=== PATIENT | male | born 1975 | race Caucasian/White ===

== ENCOUNTER 2020-05-17 11:23 | Inpatient (IN) | payer OTHER, SELFPAY ==
[2020-05-17 14:00] VITALS: BP 130/79
[2020-05-17] MEDS ORDERED: SYMB16INH INH (15:10)
[2020-05-17] MEDS ORDERED: ATOR40TA75 PO (15:10)
[2020-05-17] MEDS ORDERED: AMLO25TA PO (15:10)
[2020-05-17] MEDS ORDERED: SENN-23 PO (15:10)
[2020-05-17] MEDS ORDERED: ASPI81CH33 PO (15:10)
[2020-05-17] MEDS ORDERED: FLOM0.4C39 PO (15:10)
[2020-05-17] MEDS ORDERED: VENTAER INH (15:10)
[2020-05-17] MEDS ORDERED: BISA10SU27 PR (15:10)
[2020-05-17] MEDS ORDERED: FAMO20TA PO (15:10)
[2020-05-17] MEDS ORDERED: [UNRECOGNIZED DRUG - CODE] XX (15:10)
[2020-05-17] MEDS ORDERED: patient comment (15:14)
[2020-05-17] MEDS: REMEDY PHYTOPLEX Z-GUARD PASTE 113GM TUBE (FROM STOREROOM PRODUCT) TOP SCH ×2 (16:00→20:14)
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
[2020-05-17] MEDS: IPRATROPIUM 0.5MG/ALBUTEROL 2.5MG INH SOL UD 3ML (DUONEB) NEB SCH (19:31)
[2020-05-17] MEDS: SYMBICORT 160/4.5MCG INHALER 6GM INH SCH (19:39)
[2020-05-17 20:00] VITALS: BP 131/71
[2020-05-17] MEDS: SENNA 8.6 MG TAB (SENOKOT) PO SCH (20:08)
[2020-05-17] MEDS: DOCUSATE SODIUM 100 MG CAP PO SCH (20:08)
[2020-05-17] MEDS: FAMOTIDINE 20 MG TAB PO SCH (20:08)
[2020-05-17] MEDS: ATORVASTATIN 20 MG TAB PO SCH (20:08)
[2020-05-17] MEDS: HEPARIN SOD (PORCINE) 5000UNITS/ML 1ML VIAL/SYRINGE SC SCH (20:08)
[2020-05-17] MEDS: ACETAMINOPHEN TAB 650MG DOSE (2X325MG) PO PRN (20:08)
[2020-05-17] MEDS: traZODone 25MG PER 1/2 TABLET PO PRN (20:08)
[2020-05-18] MEDS ORDERED: SODIUM CHLORIDE 0.9% INJ 10 ML SYR IV PRN (01:45)
[2020-05-18 06:00] VITALS: BP 116/79
[2020-05-18 06:57] LABS: BASO % 0.4 % (0.0-1.0); EOS # 0.2 10^3/uL (0.0-0.5); EOS % 3.6 % (0.0-3.0); HEMATOCRIT 41.2 % (42.0-52.0); HEMOGLOBIN 14.1 g/dl (13.5-17.5); LYMPH # 1.4 10^3/uL (1.5-5.0); LYMPH % 25.4 % (24.0-44.0); MEAN CORPUSCULAR HEMOGLOBIN 30.5 pg (27.0-33.0); MEAN CORPUSCULAR HGB CONC 34.2 g/dl (32.0-36.5); MEAN CORPUSCULAR VOLUME 89.2 fl (80.0-96.0); MONO # 0.5 10^3/uL (0.0-0.8); MONO % 9.3 % (0.0-5.0); NEUTROPHILS # 3.4 10^3/uL (1.5-8.5); NEUTROPHILS % 60.9 % (36.0-66.0); PLATELET COUNT, AUTOMATED 340 10^3/uL (150-450); RED BLOOD COUNT 4.62 10^6/uL (4.30-6.10); WHITE BLOOD COUNT 5.6 10^3/uL (4.0-10.0)
[2020-05-18 07:20] LABS: ALBUMIN 3.3 GM/DL (3.2-5.2); ALT/SGPT 191 U/L (12-78); BILIRUBIN,TOTAL 0.3 MG/DL (0.2-1.0); BLOOD UREA NITROGEN 13 MG/DL (7-18); CALCIUM LEVEL 8.9 MG/DL (8.5-10.1); CARBON DIOXIDE LEVEL 24 MEQ/L (21-32); CHLORIDE LEVEL 108 MEQ/L (98-107); CREATININE FOR GFR 1.12 MG/DL (0.70-1.30); GLOMERULAR FILTRATION RATE > 60.0 (>60); GLUCOSE, FASTING 128 MG/DL (70-100); POTASSIUM SERUM 4.1 MEQ/L (3.5-5.1); SODIUM LEVEL 141 MEQ/L (136-145); TOTAL PROTEIN 6.7 GM/DL (6.4-8.2)
[2020-05-18] MEDS: SYMBICORT 160/4.5MCG INHALER 6GM INH SCH ×2 (07:43→19:46)
[2020-05-18] MEDS: IPRATROPIUM 0.5MG/ALBUTEROL 2.5MG INH SOL UD 3ML (DUONEB) NEB SCH ×3 (07:43→19:46)
[2020-05-18] MEDS: FLUoxetine 20 MG CAP PO SCH (08:14)
[2020-05-18] MEDS: ASPIRIN 81 MG ENTERIC TAB PO SCH (08:14)
[2020-05-18] MEDS: TAMSULOSIN 0.4 MG CAP PO SCH (08:14)
[2020-05-18] MEDS: DOCUSATE SODIUM 100 MG CAP PO SCH ×2 (08:15→20:50)
[2020-05-18] MEDS: FAMOTIDINE 20 MG TAB PO SCH ×2 (08:15→20:50)
[2020-05-18] MEDS: HEPARIN SOD (PORCINE) 5000UNITS/ML 1ML VIAL/SYRINGE SC SCH ×2 (08:15→20:49)
[2020-05-18] MEDS: REMEDY PHYTOPLEX Z-GUARD PASTE 113GM TUBE (FROM STOREROOM PRODUCT) TOP SCH ×3 (08:16→20:50)
[2020-05-18] MEDS: ACETAMINOPHEN TAB 650MG DOSE (2X325MG) PO PRN ×2 (13:01→20:49)
[2020-05-18 14:00] VITALS: BP 121/75
[2020-05-18] MEDS ORDERED: SODIUM CHLORIDE 0.9% INJ 10 ML SYR IV SCH (17:00)
[2020-05-18 20:00] VITALS: BP 117/79
[2020-05-18] MEDS: ATORVASTATIN 20 MG TAB PO SCH (20:49)
[2020-05-18] MEDS: SENNA 8.6 MG TAB (SENOKOT) PO SCH (20:50)
[2020-05-18] MEDS: traZODone 25MG PER 1/2 TABLET PO PRN (20:50)
[2020-05-19 06:00] VITALS: BP 109/60
[2020-05-19] MEDS: IPRATROPIUM 0.5MG/ALBUTEROL 2.5MG INH SOL UD 3ML (DUONEB) NEB SCH ×4 (08:00→18:15)
[2020-05-19] MEDS: SYMBICORT 160/4.5MCG INHALER 6GM INH SCH ×2 (08:03→18:15)
[2020-05-19] MEDS: ACETAMINOPHEN TAB 650MG DOSE (2X325MG) PO PRN ×3 (08:57→20:53)
[2020-05-19] MEDS: HEPARIN SOD (PORCINE) 5000UNITS/ML 1ML VIAL/SYRINGE SC SCH ×2 (08:57→20:53)
[2020-05-19] MEDS: FLUoxetine 20 MG CAP PO SCH (08:57)
[2020-05-19] MEDS: DOCUSATE SODIUM 100 MG CAP PO SCH ×2 (08:57→20:53)
[2020-05-19] MEDS: TAMSULOSIN 0.4 MG CAP PO SCH (08:57)
[2020-05-19] MEDS: FAMOTIDINE 20 MG TAB PO SCH ×2 (08:57→20:53)
[2020-05-19] MEDS: ASPIRIN 81 MG ENTERIC TAB PO SCH (08:57)
[2020-05-19] MEDS: REMEDY PHYTOPLEX Z-GUARD PASTE 113GM TUBE (FROM STOREROOM PRODUCT) TOP SCH ×3 (08:57→20:54)
[2020-05-19 14:00] VITALS: BP 90/51
[2020-05-19 19:50] VITALS: BP 129/71
[2020-05-19] MEDS: SENNA 8.6 MG TAB (SENOKOT) PO SCH (20:53)
[2020-05-19] MEDS: ATORVASTATIN 20 MG TAB PO SCH (20:53)
[2020-05-19] MEDS: traZODone 25MG PER 1/2 TABLET PO PRN (20:53)
[2020-05-20 05:22] VITALS: BP 129/69
[2020-05-20] MEDS: SYMBICORT 160/4.5MCG INHALER 6GM INH SCH ×2 (07:36→20:24)
[2020-05-20] MEDS: IPRATROPIUM 0.5MG/ALBUTEROL 2.5MG INH SOL UD 3ML (DUONEB) NEB SCH ×3 (07:36→20:00)
[2020-05-20] MEDS: FAMOTIDINE 20 MG TAB PO SCH ×2 (08:08→21:33)
[2020-05-20] MEDS: DOCUSATE SODIUM 100 MG CAP PO SCH ×2 (08:08→21:32)
[2020-05-20] MEDS: FLUoxetine 20 MG CAP PO SCH (08:08)
[2020-05-20] MEDS: ASPIRIN 81 MG ENTERIC TAB PO SCH (08:09)
[2020-05-20] MEDS: REMEDY PHYTOPLEX Z-GUARD PASTE 113GM TUBE (FROM STOREROOM PRODUCT) TOP SCH ×3 (08:10→21:00)
[2020-05-20] MEDS: TAMSULOSIN 0.4 MG CAP PO SCH (08:10)
[2020-05-20] MEDS: HEPARIN SOD (PORCINE) 5000UNITS/ML 1ML VIAL/SYRINGE SC SCH ×2 (08:10→21:32)
[2020-05-20 08:11] VITALS: BP 109/66
[2020-05-20] MEDS: ACETAMINOPHEN TAB 650MG DOSE (2X325MG) PO PRN (11:17)
[2020-05-20 11:57] LABS: BASO % 0.5 % (0.0-1.0); EOS # 0.2 10^3/uL (0.0-0.5); EOS % 2.8 % (0.0-3.0); HEMATOCRIT 43.6 % (42.0-52.0); HEMOGLOBIN 14.6 g/dl (13.5-17.5); LYMPH # 1.2 10^3/uL (1.5-5.0); LYMPH % 16.4 % (24.0-44.0); MEAN CORPUSCULAR HEMOGLOBIN 30.4 pg (27.0-33.0); MEAN CORPUSCULAR HGB CONC 33.5 g/dl (32.0-36.5); MEAN CORPUSCULAR VOLUME 90.8 fl (80.0-96.0); MONO # 0.5 10^3/uL (0.0-0.8); MONO % 7.2 % (0.0-5.0); NEUTROPHILS # 5.5 10^3/uL (1.5-8.5); NEUTROPHILS % 72.7 % (36.0-66.0); PLATELET COUNT, AUTOMATED 357 10^3/uL (150-450); WHITE BLOOD COUNT 7.6 10^3/uL (4.0-10.0)
[2020-05-20 12:12] LABS: BLOOD UREA NITROGEN 12 MG/DL (7-18); CALCIUM LEVEL 9.3 MG/DL (8.5-10.1); CARBON DIOXIDE LEVEL 27 MEQ/L (21-32); CHLORIDE LEVEL 106 MEQ/L (98-107); CREATININE FOR GFR 1.18 MG/DL (0.70-1.30); GLOMERULAR FILTRATION RATE > 60.0 (>60); GLUCOSE, FASTING 147 MG/DL (70-100); SODIUM LEVEL 141 MEQ/L (136-145)
--- NOTE | 2020-05-20 12:14 | IPNPDOC ---
PM&R Progress Note DATE OF SERVICE: May 20, 2020 Wage And Salary Administrator Progress Note Subjective: PAtient seen in therapy getting NMES to his RLE and was unable to state how he was feeling. He was unable to give a "thumbs up" sign on command, but did att empt to do it. He was able to follow some commands and participate in therapy. REVIEW OF SYSTEMS: The following is a completed review of systems and has been reviewed. Review of systems otherwise unremarkable. *Difficult to assess due to global aphasia, but patient does not appear to be in pain GENITOURINARY: +neely MUSCULOSKELETAL: right sided weakness NEUROLOGICAL:+right sided paresis with aphasia SKIN: no rash PSYCHIATRIC: +aphasia All other review of systems found to be negative. PAST MEDICAL HISTORY: as per HPI PAST SURGICAL HISTORY: Colostomy s/p removal PHYSICAL EXAMINATION: VITAL SIGNS: Please see below. GENERAL: Pleasant and cooperative. No acute distress. HEENT: PERRL. Extraocular movements intact. Clear conjunctiva, righ facial droop CARDIOVASCULAR: Regular rate and rhythm. No murmurs, rubs, or gallops LUNGS: Clear to auscultation bilaterally. No wheezes. No rhonchi ABDOMEN: Soft, nontender, nondistended. Positive bowel sounds. Normal active bowel sounds. old scars NEUROLOGICAL: +global aphasia, Cranial nerves II through XII grossly intact. Sensation grossly intact to light touch throughout although difficult yo assess due to aphasia 3+patellar reflex, +RLE clonus 1/4 tone RUE EXTREMITIES: 5\\5 strength left upper extremities. 0\\5 strength right lower and upper extremity. 5/5 strength in left lower extremity. SKIN: intact ASSESSMENT:45-year-old M with past medical history of Asthma who presents status post large left MCA infarct PLAN: 1. Rehab- PT/OT advance mobility and ADLs, stretch/strengthen/maintain ROM all 4 limbs, estim ok to trial to right side 2. 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 Cardiac- HTN c/u amlodipine -medicine consulted to assist in management 4. Neuro- large left MCA infarct with dense right sided hemiparesis and global aphasia, c/u ASA and statin -c/u prozac for motor recovery -monitor for tone 5. Resp- hx of asthma- duonebs, incentive spirometry 6. GI ppx- pepcid 7. DVT ppx- heparin and teds 8. Pain- tylenol prn 9. - c/u neely and flofuentes, will consider TOV this week, however concern patient will not be able to communicate his need to urinate effectively 10. Dispo- tbd Allergies Coded Allergies: SEAFOOD (Unverified Allergy, Unknown, SHELLFISH, 05/17/20) Vital Signs Vital Signs Date Time Temp Pulse Resp B/P (MAP) Pulse Ox O2 Delivery O2 Flow Rate FiO2 05/20/20 08:11 71 109/66 (80) 05/20/20 05:22 98.1 18 97 Room Air Laboratory Data CBC/BMP Laboratory Tests 05/20/20 11:35 Labs 24H Laboratory Tests 2 05/20/20 11:35: Immature Granulocyte % (Auto) 0.4, Neutrophils (%) (Auto) 72.7H, Lymphocytes (%) (Auto) 16.4L, Monocytes (%) (Auto) 7.2H, Eosinophils (%) (Auto) 2.8, Basophils (%) (Auto) 0.5, Neutrophils # (Auto) 5.5, Lymphocytes # (Auto) 1.2L, Monocytes # (Auto) 0.5, Eosinophils # (Auto) 0.2, Basophils # (Auto) 0.0, Nucleated Red Blood Cells % (auto) 0.0 Current Medications Current Medications Current Medications Medications (Trade) Dose Ordered Sig/Live Route PRN Reason Start Time Stop Time Status Last Admin Dose Admin Acetaminophen (Tylenol Tab) 650 mg Q4HP PRN PO fever/MILD PAIN (PS 1-4) 05/17/20 13:15 05/20/20 11:17 Albuterol/ Ipratropium (Duoneb (Ipr 0.5mg/Alb 2.5mg)) 3 ml RTID NEB 05/17/20 20:00 05/19/20 15:57 Amlodipine Besylate (Norvasc) 2.5 mg DAILY PO 05/18/20 09:00 05/18/20 08:15 Aspirin (Ecotrin) 81 mg DAILY PO 05/18/20 09:00 05/20/20 08:09 Atorvastatin Calcium (Lipitor) 80 mg QHS PO 05/17/20 21:00 05/19/20 20:53 Budesonide/ Formoterol Fumarate (Symbicort 160/ 4.5mcg) 2 puff RBID INH 05/17/20 20:00 05/20/20 07:36 Docusate Sodium (Colace) 100 mg BID PO 05/17/20 21:00 05/20/20 08:08 Famotidine (Pepcid) 20 mg BID PO 05/17/20 21:00 05/20/20 08:08 Fluoxetine HCl (PROzac) 20 mg DAILY PO 05/18/20 09:00 05/20/20 08:08 Heparin Sodium (Heparin (Flush)) 200 units ASDIRECTED PRN IV SEE LABEL COMMENTS 05/18/20 01:45 Cancel Heparin Sodium (Heparin (Flush)) 200 units PICC IV 05/18/20 17:00 Cancel Heparin Sodium (Porcine) (Heparin) 5,000 units Q12H SC 05/17/20 21:00 05/20/20 08:10 Home Med (Med Rec Complete!) ASDIRECTED XX 05/17/20 16:15 05/17/20 16:09 DC Senna (Senokot) 1 tab QHS PO 05/17/20 21:00 05/19/20 20:53 Sodium Chloride (Saline Lock Flush) 10 ml ASDIRECTED PRN IV SEE LABEL COMMENTS 05/18/20 01:45 Cancel Sodium Chloride (Saline Lock Flush) 10 ml PICC IV 05/18/20 17:00 Cancel Tamsulosin HCl (Flomax) 0.4 mg DAILY PO 05/18/20 09:00 05/20/20 08:10 Trazodone HCl (Desyrel) 25 mg QHSP PRN PO INSOMNIA 05/17/20 13:15 05/19/20 20:53 OMAR CABELLO MD May 20, 2020 12:14
[2020-05-20 14:00] VITALS: BP 116/66
[2020-05-20 14:40] VITALS: BP 121/61
[2020-05-20 20:20] VITALS: BP 129/74
[2020-05-20] MEDS: ATORVASTATIN 20 MG TAB PO SCH (21:33)
[2020-05-20] MEDS: SENNA 8.6 MG TAB (SENOKOT) PO SCH (21:33)
[2020-05-21 05:52] VITALS: BP 116/65
[2020-05-21] MEDS: IPRATROPIUM 0.5MG/ALBUTEROL 2.5MG INH SOL UD 3ML (DUONEB) NEB SCH ×3 (07:15→19:33)
[2020-05-21] MEDS: SYMBICORT 160/4.5MCG INHALER 6GM INH SCH ×2 (07:15→19:33)
[2020-05-21] MEDS: REMEDY PHYTOPLEX Z-GUARD PASTE 113GM TUBE (FROM STOREROOM PRODUCT) TOP SCH ×3 (09:00→20:37)
[2020-05-21] MEDS: FLUoxetine 20 MG CAP PO SCH (09:02)
[2020-05-21] MEDS: ASPIRIN 81 MG ENTERIC TAB PO SCH (09:02)
[2020-05-21] MEDS: DOCUSATE SODIUM 100 MG CAP PO SCH ×2 (09:02→20:37)
[2020-05-21] MEDS: TAMSULOSIN 0.4 MG CAP PO SCH (09:02)
[2020-05-21] MEDS: HEPARIN SOD (PORCINE) 5000UNITS/ML 1ML VIAL/SYRINGE SC SCH ×2 (09:02→20:36)
[2020-05-21] MEDS: FAMOTIDINE 20 MG TAB PO SCH ×2 (09:02→20:36)
[2020-05-21 14:00] VITALS: BP 136/66
[2020-05-21 20:00] VITALS: BP 122/64
[2020-05-21] MEDS: SENNA 8.6 MG TAB (SENOKOT) PO SCH (20:36)
[2020-05-21] MEDS: ATORVASTATIN 20 MG TAB PO SCH (20:37)
[2020-05-22] MEDS: traZODone 25MG PER 1/2 TABLET PO PRN (01:14)
[2020-05-22] MEDS: ACETAMINOPHEN TAB 650MG DOSE (2X325MG) PO PRN (01:14)
[2020-05-22] MEDS ORDERED: SLF 3 ML SYR IV PRN (03:30)
[2020-05-22 05:26] VITALS: BP 137/63
[2020-05-22] MEDS ORDERED: SLF 3 ML SYR IV SCH (06:00)
[2020-05-22 07:24] LABS: BASO % 0.5 % (0.0-1.0); EOS # 0.2 10^3/uL (0.0-0.5); EOS % 5.4 % (0.0-3.0); HEMATOCRIT 39.5 % (42.0-52.0); HEMOGLOBIN 13.1 g/dl (13.5-17.5); LYMPH # 1.3 10^3/uL (1.5-5.0); LYMPH % 28.2 % (24.0-44.0); MEAN CORPUSCULAR HEMOGLOBIN 30.5 pg (27.0-33.0); MEAN CORPUSCULAR HGB CONC 33.2 g/dl (32.0-36.5); MEAN CORPUSCULAR VOLUME 91.9 fl (80.0-96.0); MONO # 0.6 10^3/uL (0.0-0.8); MONO % 12.4 % (0.0-5.0); NEUTROPHILS # 2.4 10^3/uL (1.5-8.5); PLATELET COUNT, AUTOMATED 325 10^3/uL (150-450); WHITE BLOOD COUNT 4.4 10^3/uL (4.0-10.0)
[2020-05-22 07:50] LABS: BLOOD UREA NITROGEN 7 MG/DL (7-18); CALCIUM LEVEL 8.9 MG/DL (8.5-10.1); CARBON DIOXIDE LEVEL 24 MEQ/L (21-32); CHLORIDE LEVEL 108 MEQ/L (98-107); GLOMERULAR FILTRATION RATE > 60.0 (>60); GLUCOSE, FASTING 119 MG/DL (70-100); POTASSIUM SERUM 4.4 MEQ/L (3.5-5.1); SODIUM LEVEL 140 MEQ/L (136-145)
[2020-05-22] MEDS: SYMBICORT 160/4.5MCG INHALER 6GM INH SCH ×2 (08:00→19:27)
[2020-05-22] MEDS: IPRATROPIUM 0.5MG/ALBUTEROL 2.5MG INH SOL UD 3ML (DUONEB) NEB SCH ×3 (08:00→19:27)
[2020-05-22] MEDS: HEPARIN SOD (PORCINE) 5000UNITS/ML 1ML VIAL/SYRINGE SC SCH ×2 (08:12→20:51)
[2020-05-22] MEDS: FAMOTIDINE 20 MG TAB PO SCH ×2 (08:12→20:51)
[2020-05-22] MEDS: FLUoxetine 20 MG CAP PO SCH (08:13)
[2020-05-22] MEDS: REMEDY PHYTOPLEX Z-GUARD PASTE 113GM TUBE (FROM STOREROOM PRODUCT) TOP SCH ×3 (08:13→20:51)
[2020-05-22] MEDS: DOCUSATE SODIUM 100 MG CAP PO SCH ×2 (08:13→20:51)
[2020-05-22] MEDS: ASPIRIN 81 MG ENTERIC TAB PO SCH (08:13)
[2020-05-22] MEDS: TAMSULOSIN 0.4 MG CAP PO SCH (08:13)
[2020-05-22 09:56] VITALS: BP 118/72
[2020-05-22 10:37] LABS: PROLACTIN 6.2 NG/ML (2.1-17.7)
--- NOTE | 2020-05-22 11:25 | REP ---
Clinical: Seizure-like activity . Comparison: None . Findings: Low density changes involving the left hemisphere with prominent overlying cortical gyri in a primarily left middle cerebral artery distribution is concerning for an acute/subacute infarction. No significant vasogenic edema or mass/mass effect currently identified. The ventricles and specifically the lateral ventricles as well as the sulci are symmetric and patent. No obvious focal intracranial hemorrhage noted. Remainder examination appears normal. Impression: Findings described above most concerning for left MCA artery infarction and correlation is recommended. Consider MRI for further investigation. Electronically Signed by Daniel Wilcox MD 05/22/2020 11:17 A
--- NOTE | 2020-05-22 12:12 | IPNPDOC ---
PM&R Progress Note DATE OF SERVICE: May 21, 2020 Equipment Maintenance Technician Progress Note Subjective: Patient seen in his room watching television, appearing alert and comfortable, He made attempts to sing along with the "ABC's" but was was only able to repeat the sound "no" in a monotone voice. REVIEW OF SYSTEMS: The following is a completed review of systems and has been reviewed. Review of systems otherwise unremarkable. *Difficult to assess due to global aphasia, but patient does not appear to be in pain GENITOURINARY: +neely MUSCULOSKELETAL: right sided weakness NEUROLOGICAL:+right sided paresis with aphasia SKIN: no rash PSYCHIATRIC: +aphasia All other review of systems found to be negative. PHYSICAL EXAMINATION: VITAL SIGNS: Please see below. GENERAL: Pleasant and cooperative. No acute distress. HEENT: PERRL. Extraocular movements intact. Clear conjunctiva, righ facial droop CARDIOVASCULAR: Regular rate and rhythm. No murmurs, rubs, or gallops LUNGS: Clear to auscultation bilaterally. No wheezes. No rhonchi ABDOMEN: Soft, nontender, nondistended. Positive bowel sounds. Normal active bowel sounds. old scars NEUROLOGICAL: +global aphasia, Cranial nerves II through XII grossly intact. Sensation grossly intact to light touch throughout although difficult to assess due to aphasia 3+patellar reflex, +RLE clonus 1/4 tone RUE EXTREMITIES: 5\\5 strength left upper extremities. 0\\5 strength right lower and upper extremity. 5/5 strength in left lower extremity. SKIN: intact ASSESSMENT:45-year-old M with past medical history of Asthma who presents status post large left MCA infarct PLAN: 1. 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 Cardiac- HTN c/u amlodipine -medicine consulted to assist in management 4. Neuro- large left MCA infarct with dense right sided hemiparesis and global aphasia, c/u ASA and statin -c/u prozac for motor recovery -monitor for tone, c/u resting hand splint and daily stretching 5. Resp- hx of asthma- duonebs, incentive spirometry 6. GI ppx- pepcid 7. DVT ppx- heparin and teds 8. Pain- tylenol prn 9. - c/u neely and erasmo, will consider TOV this week, however concern patient will not be able to communicate his need to urinate effectively 10. Dispo- tbd Allergies Coded Allergies: SEAFOOD (Unverified Allergy, Unknown, SHELLFISH, 05/17/20) Vital Signs Vital Signs Date Time Temp Pulse Resp B/P (MAP) Pulse Ox O2 Delivery O2 Flow Rate FiO2 05/22/20 09:56 118/72 (87) 05/22/20 08:13 63 05/22/20 05:26 98.3 18 98 Room Air Laboratory Data CBC/BMP Laboratory Tests 05/22/20 06:51 Labs 24H Laboratory Tests 2 05/22/20 06:51: Immature Granulocyte % (Auto) 0.5, Neutrophils (%) (Auto) 53.0, Lymphocytes (%) (Auto) 28.2, Monocytes (%) (Auto) 12.4H, Eosinophils (%) (Auto) 5.4H, Basophils (%) (Auto) 0.5, Neutrophils # (Auto) 2.4, Lymphocytes # (Auto) 1.3L, Monocytes # (Auto) 0.6, Eosinophils # (Auto) 0.2, Basophils # (Auto) 0.0, Nucleated Red Blood Cells % (auto) 0.0, Anion Gap 8, Glomerular Filtration Rate > 60.0, Calcium Level 8.9, Prolactin 6.2 Current Medications Current Medications Current Medications Medications (Trade) Dose Ordered Sig/Live Route PRN Reason Start Time Stop Time Status Last Admin Dose Admin Acetaminophen (Tylenol Tab) 650 mg Q4HP PRN PO fever/MILD PAIN (PS 1-4) 05/17/20 13:15 05/22/20 01:14 Albuterol/ Ipratropium (Duoneb (Ipr 0.5mg/Alb 2.5mg)) 3 ml RTID NEB 05/17/20 20:00 05/20/20 13:10 Amlodipine Besylate (Norvasc) 2.5 mg DAILY PO 05/18/20 09:00 05/22/20 08:13 Aspirin (Ecotrin) 81 mg DAILY PO 05/18/20 09:00 05/22/20 08:13 Atorvastatin Calcium (Lipitor) 80 mg QHS PO 05/17/20 21:00 05/21/20 20:37 Budesonide/ Formoterol Fumarate (Symbicort 160/ 4.5mcg) 2 puff RBID INH 05/17/20 20:00 05/21/20 19:33 Docusate Sodium (Colace) 100 mg BID PO 05/17/20 21:00 05/22/20 08:13 Famotidine (Pepcid) 20 mg BID PO 05/17/20 21:00 05/22/20 08:12 Fluoxetine HCl (PROzac) 20 mg DAILY PO 05/18/20 09:00 05/22/20 08:13 Heparin Sodium (Heparin (Flush)) 200 units ASDIRECTED PRN IV SEE LABEL COMMENTS 05/18/20 01:45 Cancel Heparin Sodium (Heparin (Flush)) 200 units PICC IV 05/18/20 17:00 Cancel Heparin Sodium (Porcine) (Heparin) 5,000 units Q12H SC 05/17/20 21:00 05/22/20 08:12 Home Med (Med Rec Complete!) ASDIRECTED XX 05/17/20 16:15 05/17/20 16:09 DC Senna (Senokot) 1 tab QHS PO 05/17/20 21:00 05/20/20 21:33 Sodium Chloride (Saline Lock Flush) 2 ml ASDIRECTED PRN IV SEE LABEL COMMENTS 05/22/20 03:30 05/22/20 05:51 DC Sodium Chloride (Saline Lock Flush) 2 ml SLF IV 05/22/20 06:00 05/22/20 05:51 DC Sodium Chloride (Saline Lock Flush) 10 ml ASDIRECTED PRN IV SEE LABEL COMMENTS 05/18/20 01:45 Cancel Sodium Chloride (Saline Lock Flush) 10 ml PICC IV 05/18/20 17:00 Cancel Tamsulosin HCl (Flomax) 0.4 mg DAILY PO 05/18/20 09:00 05/22/20 08:13 Trazodone HCl (Desyrel) 25 mg QHSP PRN PO INSOMNIA 05/17/20 13:15 05/22/20 01:14 OMAR CABELLO MD May 22, 2020 12:12
--- NOTE | 2020-05-22 12:16 | IPNPDOC ---
PM&R Progress Note DATE OF SERVICE: May 22, 2020 Sales Representative Printing Paper Progress Note Subjective: Patient seen in his on the stretcher going down to CT and again after imaging study. Both times he appeared comfortable, no shaking or drooling, able to res pond to verbal cues with somewhat appropriate gestures, but unable to verbalize. REVIEW OF SYSTEMS: The following is a completed review of systems and has been reviewed. Review of systems otherwise unremarkable. *Difficult to assess due to global aphasia, but patient does not appear to be in pain GENITOURINARY: +neely MUSCULOSKELETAL: right sided weakness NEUROLOGICAL:+right sided paresis with aphasia SKIN: no rash PSYCHIATRIC: +aphasia All other review of systems found to be negative. PHYSICAL EXAMINATION: VITAL SIGNS: Please see below. GENERAL: Pleasant and cooperative. No acute distress. HEENT: PERRL. Extraocular movements intact. Clear conjunctiva, righ facial droop CARDIOVASCULAR: Regular rate and rhythm. No murmurs, rubs, or gallops LUNGS: Clear to auscultation bilaterally. No wheezes. No rhonchi ABDOMEN: Soft, nontender, nondistended. Positive bowel sounds. Normal active bowel sounds. old scars NEUROLOGICAL: +global aphasia, Cranial nerves II through XII grossly intact. Sensation grossly intact to light touch throughout although difficult to assess due to aphasia 3+patellar reflex, +RLE clonus 1/4 tone RUE EXTREMITIES: 5\5 strength left upper extremities. 0\5 strength right lower and upper extremity. 5/5 strength in left lower extremity. SKIN: intact ASSESSMENT:45-year-old M with past medical history of Asthma who presents status post large left MCA infarct PLAN: 1. 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 Cardiac- HTN c/u amlodipine -medicine consulted to assist in management 4. Neuro- large left MCA infarct with dense right sided hemiparesis and global aphasia, c/u ASA and statin -c/u prozac for motor recovery -monitor for tone, c/u resting hand splint and daily stretching -patient with seizure-like activity in OT today, vitals stable and appears back to baseline- CTH negative for new bleed, prolactin not elevated, EEG ordered and case discussed with Dr. Cardenas who will consult on the patient and give further recs 5. Resp- hx of asthma- duonebs, incentive spirometry 6. GI ppx- pepcid 7. DVT ppx- heparin and teds 8. Pain- tylenol prn 9. - c/u neely and flomax, will consider TOV this week, however concern patient will not be able to communicate his need to urinate effectively 10. Dispo- tbd Allergies Coded Allergies: SEAFOOD (Unverified Allergy, Unknown, SHELLFISH, 05/17/20) Vital Signs Vital Signs Date Time Temp Pulse Resp B/P (MAP) Pulse Ox O2 Delivery O2 Flow Rate FiO2 05/22/20 09:56 118/72 (87) 05/22/20 08:13 63 05/22/20 05:26 98.3 18 98 Room Air Laboratory Data CBC/BMP Laboratory Tests 05/22/20 06:51 Labs 24H Laboratory Tests 2 05/22/20 06:51: Immature Granulocyte % (Auto) 0.5, Neutrophils (%) (Auto) 53.0, Lymphocytes (%) (Auto) 28.2, Monocytes (%) (Auto) 12.4H, Eosinophils (%) (Auto) 5.4H, Basophils (%) (Auto) 0.5, Neutrophils # (Auto) 2.4, Lymphocytes # (Auto) 1.3L, Monocytes # (Auto) 0.6, Eosinophils # (Auto) 0.2, Basophils # (Auto) 0.0, Nucleated Red Blood Cells % (auto) 0.0, Anion Gap 8, Glomerular Filtration Rate > 60.0, Calcium Level 8.9, Prolactin 6.2 Current Medications Current Medications Current Medications Medications (Trade) Dose Ordered Sig/Live Route PRN Reason Start Time Stop Time Status Last Admin Dose Admin Acetaminophen (Tylenol Tab) 650 mg Q4HP PRN PO fever/MILD PAIN (PS 1-4) 05/17/20 13:15 05/22/20 01:14 Albuterol/ Ipratropium (Duoneb (Ipr 0.5mg/Alb 2.5mg)) 3 ml RTID NEB 05/17/20 20:00 05/20/20 13:10 Amlodipine Besylate (Norvasc) 2.5 mg DAILY PO 05/18/20 09:00 05/22/20 08:13 Aspirin (Ecotrin) 81 mg DAILY PO 05/18/20 09:00 05/22/20 08:13 Atorvastatin Calcium (Lipitor) 80 mg QHS PO 05/17/20 21:00 05/21/20 20:37 Budesonide/ Formoterol Fumarate (Symbicort 160/ 4.5mcg) 2 puff RBID INH 05/17/20 20:00 05/21/20 19:33 Docusate Sodium (Colace) 100 mg BID PO 05/17/20 21:00 05/22/20 08:13 Famotidine (Pepcid) 20 mg BID PO 05/17/20 21:00 05/22/20 08:12 Fluoxetine HCl (PROzac) 20 mg DAILY PO 05/18/20 09:00 05/22/20 08:13 Heparin Sodium (Heparin (Flush)) 200 units ASDIRECTED PRN IV SEE LABEL COMMENTS 05/18/20 01:45 Cancel Heparin Sodium (Heparin (Flush)) 200 units PICC IV 05/18/20 17:00 Cancel Heparin Sodium (Porcine) (Heparin) 5,000 units Q12H SC 05/17/20 21:00 05/22/20 08:12 Home Med (Med Rec Complete!) ASDIRECTED XX 05/17/20 16:15 05/17/20 16:09 DC Senna (Senokot) 1 tab QHS PO 05/17/20 21:00 05/20/20 21:33 Sodium Chloride (Saline Lock Flush) 2 ml ASDIRECTED PRN IV SEE LABEL COMMENTS 05/22/20 03:30 05/22/20 05:51 DC Sodium Chloride (Saline Lock Flush) 2 ml SLF IV 05/22/20 06:00 05/22/20 05:51 DC Sodium Chloride (Saline Lock Flush) 10 ml ASDIRECTED PRN IV SEE LABEL COMMENTS 05/18/20 01:45 Cancel Sodium Chloride (Saline Lock Flush) 10 ml PICC IV 05/18/20 17:00 Cancel Tamsulosin HCl (Flomax) 0.4 mg DAILY PO 05/18/20 09:00 05/22/20 08:13 Trazodone HCl (Desyrel) 25 mg QHSP PRN PO INSOMNIA 05/17/20 13:15 05/22/20 01:14 OMAR CABELLO MD May 22, 2020 12:16
[2020-05-22 14:00] VITALS: BP 128/72
[2020-05-22 20:00] VITALS: BP 113/63
[2020-05-22] MEDS: ATORVASTATIN 20 MG TAB PO SCH (20:50)
[2020-05-22] MEDS: SENNA 8.6 MG TAB (SENOKOT) PO SCH (20:51)
[2020-05-22] MEDS: levETIRAcetam 250MG TABLET (KEPPRA) PO SCH (20:51)
[2020-05-23 06:00] VITALS: BP 102/56
[2020-05-23] MEDS: SYMBICORT 160/4.5MCG INHALER 6GM INH SCH (07:28)
[2020-05-23] MEDS: IPRATROPIUM 0.5MG/ALBUTEROL 2.5MG INH SOL UD 3ML (DUONEB) NEB SCH (07:29)
--- NOTE | 2020-05-23 09:40 | CR ---
DATE OF CONSULTATION: 05/22/2020 REFERRING PHYSICIAN: Dr. Brittney Starkey. REASON FOR CONSULTATION: Possible seizure. HISTORY OF PRESENT ILLNESS: Flakito Blank is a 44-year-old man who developed acute ischemic stroke only May 04, 2020. He presented to [facility] with right-sided weakness and aphasia and was transferred to [facility]. 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 He underwent hypercoagulable workup, which was unremarkable at [facility] per notes and he was discharged to rehabilitation at [facility] on May 17, 2020. The patient was noted to have a seizure-like episode yesterday by occupational therapist. His eyes apparently rolled up and his extremities had stiffening and shaking. This lasted for couple of minutes. Further description of this episode is not available. The patient is unable to provide any history. He appears to have global aphasia and right hemiplegia. PAST MEDICAL HISTORY: Asthma. colostomy. ORAL MEDICATIONS: - aspirin 81 mg by mouth daily - Lipitor 80 mg by mouth daily - amlodipine 2.5 mg by mouth daily - Pepcid 20 mg by mouth twice a day - Flomax 0.4 mg by mouth - Symbicort 160/4.5 mcg inhalation two puffs twice a day - albuterol inhaler as needed - bisacodyl 10 mg suppository daily prn. ALLERGIES: Seafood. FAMILY HISTORY: Unremarkable and noncontributory. SOCIAL HISTORY: Could not be obtained. REVIEW OF SYSTEMS: Could not be obtained due to global aphasia. PHYSICAL EXAMINATION: Temperature 98.9, blood pressure 128/72, pulse 78, respiratory rate 18, 96% saturation on room air. Heart: Regular rate and rhythm. Lungs: Clear to auscultation. Abdomen: Soft, nontender, nondistended. No pedal edema. No musculoskeletal abnormalities. No rash. No signs of meningeal irritation. The patient is awake, alert and oriented to self. He has global aphasia including receptive and expressive aphagia. No apparent facial weakness. Tongue uvula are midline. Extraocular muscles are intact. He appears to have right hemiplegia. Right plantar is upgoing. Sensory cerebellar testing and gait testing could not be performed. DIAGNOSTIC STUDIES: CT scan of head was reviewed and showed stable left middle cerebral artery stroke without edema, mass effect. AST was 99 and ALT was 191, hemoglobin 13.1. ASSESSMENT: 1. Suspected generalized tonic-clonic seizure. 2. Left middle cerebral artery stroke causing global aphasia and right hemiplegia. The patient had his entire workup at [facility] in [place] where he was evaluated and treated. PLAN: 1. Keppra 750 mg by mouth twice a day. 2. EEG. 3. Continue physical and occupational therapy and rehabilitation. 4. Aspirin 81 mg by mouth daily and Lipitor 80 mg by mouth daily.
[2020-05-23] MEDS: ASPIRIN 81 MG ENTERIC TAB PO SCH (11:13)
[2020-05-23] MEDS: FAMOTIDINE 20 MG TAB PO SCH (11:14)
[2020-05-23] MEDS: FLUoxetine 20 MG CAP PO SCH (11:14)
[2020-05-23] MEDS: DOCUSATE SODIUM 100 MG CAP PO SCH (11:14)
[2020-05-23 11:15] VITALS: BP 138/63
[2020-05-23] MEDS: levETIRAcetam 250MG TABLET (KEPPRA) PO SCH (11:15)
[2020-05-23] MEDS: TAMSULOSIN 0.4 MG CAP PO SCH (11:16)
[2020-05-23] MEDS: HEPARIN SOD (PORCINE) 5000UNITS/ML 1ML VIAL/SYRINGE SC SCH (11:17)
[2020-05-25] MEDS ORDERED: levETIRAcetam 250MG TABLET (KEPPRA) ONE ×2 (07:43→20:25)
[2020-05-25] MEDS ORDERED: HEPARIN SOD (PORCINE) 5000UNITS/ML 1ML VIAL/SYRINGE ONE ×2 (07:43→20:25)
[2020-05-25] MEDS ORDERED: DOCUSATE SODIUM 100 MG CAP ONE ×2 (07:43→20:25)
[2020-05-25] MEDS ORDERED: ASPIRIN 81 MG ENTERIC TAB ONE (07:43)
[2020-05-25] MEDS ORDERED: FAMOTIDINE 20 MG TAB ONE ×2 (07:43→20:25)
[2020-05-25] MEDS ORDERED: FLUoxetine 20 MG CAP ONE (07:43)
[2020-05-25] MEDS ORDERED: TAMSULOSIN 0.4 MG CAP ONE ×3 (07:43→11:32)
[2020-05-25] MEDS ORDERED: SYMBICORT 160/4.5MCG INHALER 6GM ONE (10:00)
[2020-05-25] MEDS ORDERED: DANTROLENE 25 MG CAP ONE (11:32)
[2020-05-25] MEDS ORDERED: traZODone 25MG PER 1/2 TABLET ONE (20:25)
[2020-05-25] MEDS ORDERED: SENNA 8.6 MG TAB (SENOKOT) ONE (20:25)
[2020-05-25] MEDS ORDERED: ATORVASTATIN 20 MG TAB ONE (20:25)
[2020-05-25] MEDS ORDERED: ACETAMINOPHEN TAB 650MG DOSE (2X325MG) ONE (20:25)
[2020-05-26] MEDS ORDERED: FAMOTIDINE 20 MG TAB ONE ×2 (08:10→08:15)
[2020-05-26] MEDS ORDERED: ACETAMINOPHEN TAB 650MG DOSE (2X325MG) ONE ×2 (08:10→08:15)
[2020-05-26] MEDS ORDERED: SENNA 8.6 MG TAB (SENOKOT) ONE (08:10)
[2020-05-26] MEDS ORDERED: traZODone 25MG PER 1/2 TABLET ONE (08:10)
[2020-05-26] MEDS ORDERED: levETIRAcetam 250MG TABLET (KEPPRA) ONE ×2 (08:10→08:15)
[2020-05-26] MEDS ORDERED: ATORVASTATIN 20 MG TAB ONE (08:10)
[2020-05-26] MEDS ORDERED: HEPARIN SOD (PORCINE) 5000UNITS/ML 1ML VIAL/SYRINGE ONE ×2 (08:10→08:15)
[2020-05-26] MEDS ORDERED: DOCUSATE SODIUM 100 MG CAP ONE ×2 (08:10→08:15)
[2020-05-26] MEDS ORDERED: TAMSULOSIN 0.4 MG CAP ONE (08:15)
[2020-05-26] MEDS ORDERED: ASPIRIN 81 MG ENTERIC TAB ONE (08:15)
[2020-05-26] MEDS ORDERED: FLUoxetine 20 MG CAP ONE (08:15)
[2020-05-26] MEDS ORDERED: IPRATROPIUM 0.5MG/ALBUTEROL 2.5MG INH SOL UD 3ML (DUONEB) ONE (10:00)
[2020-05-26] MEDS ORDERED: SYMBICORT 160/4.5MCG INHALER 6GM ONE (10:00)
[2020-05-26] MEDS ORDERED: DANTROLENE 25 MG CAP ONE (13:00)
[2020-05-27] MEDS ORDERED: IPRATROPIUM 0.5MG/ALBUTEROL 2.5MG INH SOL UD 3ML (DUONEB) ONE (10:00)
[2020-05-27] MEDS ORDERED: SYMBICORT 160/4.5MCG INHALER 6GM ONE (10:00)
[2020-05-28] MEDS ORDERED: DOCUSATE SODIUM 100 MG CAP ONE ×2 (08:27→20:08)
[2020-05-28] MEDS ORDERED: TAMSULOSIN 0.4 MG CAP ONE (08:27)
[2020-05-28] MEDS ORDERED: ASPIRIN 81 MG ENTERIC TAB ONE (08:27)
[2020-05-28] MEDS ORDERED: FLUoxetine 20 MG CAP ONE (08:27)
[2020-05-28] MEDS ORDERED: HEPARIN SOD (PORCINE) 5000UNITS/ML 1ML VIAL/SYRINGE ONE ×2 (08:27→20:08)
[2020-05-28] MEDS ORDERED: FAMOTIDINE 20 MG TAB ONE ×2 (08:27→20:08)
[2020-05-28] MEDS ORDERED: levETIRAcetam 250MG TABLET (KEPPRA) ONE ×2 (08:27→20:08)
[2020-05-28] MEDS ORDERED: GABAPENTIN 100 MG CAP As Ordered ONE ×2 (08:39→20:08)
[2020-05-28] MEDS ORDERED: IPRATROPIUM 0.5MG/ALBUTEROL 2.5MG INH SOL UD 3ML (DUONEB) ONE (10:00)
[2020-05-28] MEDS ORDERED: SYMBICORT 160/4.5MCG INHALER 6GM ONE (10:00)
[2020-05-28] MEDS ORDERED: GABAPENTIN 300 MG CAP As Ordered ONE (15:43)
[2020-05-28] MEDS ORDERED: ACETAMINOPHEN TAB 650MG DOSE (2X325MG) ONE (20:08)
[2020-05-28] MEDS ORDERED: traZODone 25MG PER 1/2 TABLET ONE (20:08)
[2020-05-28] MEDS ORDERED: ATORVASTATIN 20 MG TAB ONE (20:08)
[2020-05-28] MEDS ORDERED: SENNA 8.6 MG TAB (SENOKOT) ONE (20:08)
[2020-05-29] MEDS ORDERED: ACETAMINOPHEN TAB 650MG DOSE (2X325MG) ONE ×3 (05:35→19:52)
[2020-05-29] MEDS ORDERED: levETIRAcetam 250MG TABLET (KEPPRA) ONE ×2 (08:49→19:53)
[2020-05-29] MEDS ORDERED: DOCUSATE SODIUM 100 MG CAP ONE ×2 (08:49→19:53)
[2020-05-29] MEDS ORDERED: FLUoxetine 20 MG CAP ONE (08:49)
[2020-05-29] MEDS ORDERED: FAMOTIDINE 20 MG TAB ONE ×2 (08:50→19:54)
[2020-05-29] MEDS ORDERED: ASPIRIN 81 MG ENTERIC TAB ONE (08:50)
[2020-05-29] MEDS ORDERED: TAMSULOSIN 0.4 MG CAP ONE (08:50)
[2020-05-29] MEDS ORDERED: HEPARIN SOD (PORCINE) 5000UNITS/ML 1ML VIAL/SYRINGE ONE ×2 (08:52→19:53)
[2020-05-29] MEDS ORDERED: ANALGESIC BALM CRM 120 GM ONE (09:00)
[2020-05-29] MEDS ORDERED: DANTROLENE 25 MG CAP ONE (09:00)
[2020-05-29] MEDS ORDERED: GABAPENTIN 100 MG CAP ONE (09:03)
[2020-05-29] MEDS ORDERED: GABAPENTIN 100 MG CAP As Ordered ONE (09:03)
[2020-05-29] MEDS ORDERED: SYMBICORT 160/4.5MCG INHALER 6GM ONE (10:00)
[2020-05-29] MEDS ORDERED: IPRATROPIUM 0.5MG/ALBUTEROL 2.5MG INH SOL UD 3ML (DUONEB) ONE (10:00)
[2020-05-29] MEDS ORDERED: diazePAM 5 MG TAB As Ordered ONE (13:23)
[2020-05-29] MEDS ORDERED: diazePAM 5 MG TAB ONE (13:23)
[2020-05-29] MEDS ORDERED: GABAPENTIN 300 MG CAP ONE ×2 (16:31→19:53)
[2020-05-29] MEDS ORDERED: GABAPENTIN 300 MG CAP As Ordered ONE ×2 (16:31→19:53)
[2020-05-29] MEDS ORDERED: ATORVASTATIN 20 MG TAB ONE (19:53)
[2020-05-29] MEDS ORDERED: SENNA 8.6 MG TAB (SENOKOT) ONE (19:54)
[2020-05-29] MEDS ORDERED: traZODone 25MG PER 1/2 TABLET ONE (19:54)
[2020-05-30] MEDS ORDERED: ACETAMINOPHEN TAB 650MG DOSE (2X325MG) ONE (05:37)
[2020-05-30] MEDS ORDERED: diazePAM 5 MG TAB ONE (05:38)
[2020-05-30] MEDS ORDERED: diazePAM 5 MG TAB As Ordered ONE (05:38)
[2020-05-30] MEDS ORDERED: FLUoxetine 20 MG CAP ONE (08:41)
[2020-05-30] MEDS ORDERED: TAMSULOSIN 0.4 MG CAP ONE (08:41)
[2020-05-30] MEDS ORDERED: levETIRAcetam 250MG TABLET (KEPPRA) ONE ×2 (08:41→21:54)
[2020-05-30] MEDS ORDERED: DOCUSATE SODIUM 100 MG CAP ONE ×2 (08:41→21:54)
[2020-05-30] MEDS ORDERED: HEPARIN SOD (PORCINE) 5000UNITS/ML 1ML VIAL/SYRINGE ONE ×2 (08:42→21:55)
[2020-05-30] MEDS ORDERED: ASPIRIN 81 MG ENTERIC TAB ONE (08:42)
[2020-05-30] MEDS ORDERED: FAMOTIDINE 20 MG TAB ONE ×2 (08:42→21:55)
[2020-05-30] MEDS ORDERED: GABAPENTIN 300 MG CAP ONE ×3 (08:45→21:54)
[2020-05-30] MEDS ORDERED: GABAPENTIN 300 MG CAP As Ordered ONE ×3 (08:45→21:54)
[2020-05-30] MEDS ORDERED: SYMBICORT 160/4.5MCG INHALER 6GM ONE (10:00)
[2020-05-30] MEDS ORDERED: IPRATROPIUM 0.5MG/ALBUTEROL 2.5MG INH SOL UD 3ML (DUONEB) ONE (10:00)
[2020-05-30] MEDS ORDERED: SENNA 8.6 MG TAB (SENOKOT) ONE (21:55)
[2020-05-30] MEDS ORDERED: traZODone 25MG PER 1/2 TABLET ONE (22:09)
[2020-05-31] MEDS ORDERED: diazePAM 5 MG TAB As Ordered ONE (02:38)
[2020-05-31] MEDS ORDERED: DOCUSATE SODIUM 100 MG CAP ONE ×2 (08:41→20:22)
[2020-05-31] MEDS ORDERED: FLUoxetine 20 MG CAP ONE (08:41)
[2020-05-31] MEDS ORDERED: FAMOTIDINE 20 MG TAB ONE ×2 (08:41→20:22)
[2020-05-31] MEDS ORDERED: ASPIRIN 81 MG ENTERIC TAB ONE (08:41)
[2020-05-31] MEDS ORDERED: GABAPENTIN 300 MG CAP As Ordered ONE ×2 (08:41→20:22)
[2020-05-31] MEDS ORDERED: HEPARIN SOD (PORCINE) 5000UNITS/ML 1ML VIAL/SYRINGE ONE ×2 (08:41→20:22)
[2020-05-31] MEDS ORDERED: TAMSULOSIN 0.4 MG CAP ONE (08:41)
[2020-05-31] MEDS ORDERED: levETIRAcetam 250MG TABLET (KEPPRA) ONE ×2 (08:41→20:22)
[2020-05-31] MEDS ORDERED: SYMBICORT 160/4.5MCG INHALER 6GM ONE (10:00)
[2020-05-31] MEDS ORDERED: IPRATROPIUM 0.5MG/ALBUTEROL 2.5MG INH SOL UD 3ML (DUONEB) ONE (10:00)
[2020-05-31] MEDS ORDERED: DANTROLENE 25 MG CAP ONE (11:00)
[2020-05-31] MEDS ORDERED: traZODone 25MG PER 1/2 TABLET ONE (20:22)
[2020-05-31] MEDS ORDERED: ATORVASTATIN 20 MG TAB ONE (20:22)
[2020-06-01] MEDS ORDERED: diazePAM 5 MG TAB As Ordered ONE ×2 (04:36→16:41)
[2020-06-01] MEDS ORDERED: levETIRAcetam 250MG TABLET (KEPPRA) ONE ×2 (08:28→20:00)
[2020-06-01] MEDS ORDERED: GABAPENTIN 300 MG CAP As Ordered ONE ×3 (08:28→20:16)
[2020-06-01] MEDS ORDERED: ASPIRIN 81 MG ENTERIC TAB ONE (08:28)
[2020-06-01] MEDS ORDERED: HEPARIN SOD (PORCINE) 5000UNITS/ML 1ML VIAL/SYRINGE ONE ×2 (08:28→20:00)
[2020-06-01] MEDS ORDERED: SENNA 8.6 MG TAB (SENOKOT) ONE ×2 (08:28→20:00)
[2020-06-01] MEDS ORDERED: TAMSULOSIN 0.4 MG CAP ONE (08:28)
[2020-06-01] MEDS ORDERED: DOCUSATE SODIUM 100 MG CAP ONE ×2 (08:28→20:00)
[2020-06-01] MEDS ORDERED: FAMOTIDINE 20 MG TAB ONE ×2 (08:28→20:00)
[2020-06-01] MEDS ORDERED: IPRATROPIUM 0.5MG/ALBUTEROL 2.5MG INH SOL UD 3ML (DUONEB) ONE (10:00)
[2020-06-01] MEDS ORDERED: SYMBICORT 160/4.5MCG INHALER 6GM ONE (10:00)
[2020-06-01] MEDS ORDERED: ATORVASTATIN 20 MG TAB ONE (20:00)
[2020-06-01] MEDS ORDERED: ACETAMINOPHEN TAB 650MG DOSE (2X325MG) ONE (20:00)
[2020-06-01] MEDS ORDERED: traZODone 25MG PER 1/2 TABLET ONE (20:00)
[2020-06-02] MEDS ORDERED: diazePAM 5 MG TAB As Ordered ONE (01:32)
[2020-06-02] MEDS ORDERED: TAMSULOSIN 0.4 MG CAP ONE (07:56)
[2020-06-02] MEDS ORDERED: levETIRAcetam 250MG TABLET (KEPPRA) ONE ×2 (07:56→20:00)
[2020-06-02] MEDS ORDERED: FLUoxetine 20 MG CAP ONE (07:56)
[2020-06-02] MEDS ORDERED: FAMOTIDINE 20 MG TAB ONE ×2 (07:56→20:00)
[2020-06-02] MEDS ORDERED: DOCUSATE SODIUM 100 MG CAP ONE ×2 (07:56→20:00)
[2020-06-02] MEDS ORDERED: ASPIRIN 81 MG ENTERIC TAB ONE (07:56)
[2020-06-02] MEDS ORDERED: HEPARIN SOD (PORCINE) 5000UNITS/ML 1ML VIAL/SYRINGE ONE ×2 (07:56→20:00)
[2020-06-02] MEDS ORDERED: GABAPENTIN 300 MG CAP As Ordered ONE ×2 (08:00→20:00)
[2020-06-02] MEDS ORDERED: SYMBICORT 160/4.5MCG INHALER 6GM ONE (10:00)
[2020-06-02] MEDS ORDERED: IPRATROPIUM 0.5MG/ALBUTEROL 2.5MG INH SOL UD 3ML (DUONEB) ONE (10:00)
[2020-06-02] MEDS ORDERED: traZODone 25MG PER 1/2 TABLET ONE (20:00)
[2020-06-02] MEDS ORDERED: ACETAMINOPHEN TAB 650MG DOSE (2X325MG) ONE (20:00)
[2020-06-02] MEDS ORDERED: SENNA 8.6 MG TAB (SENOKOT) ONE (20:00)
[2020-06-02] MEDS ORDERED: ATORVASTATIN 20 MG TAB ONE (20:00)
[2020-06-03] MEDS ORDERED: ACETAMINOPHEN TAB 650MG DOSE (2X325MG) ONE ×2 (05:46→21:01)
[2020-06-03] MEDS ORDERED: FLUoxetine 20 MG CAP ONE (08:50)
[2020-06-03] MEDS ORDERED: ASPIRIN 81 MG ENTERIC TAB ONE (08:50)
[2020-06-03] MEDS ORDERED: FAMOTIDINE 20 MG TAB ONE ×2 (08:50→21:07)
[2020-06-03] MEDS ORDERED: TAMSULOSIN 0.4 MG CAP ONE (08:50)
[2020-06-03] MEDS ORDERED: levETIRAcetam 250MG TABLET (KEPPRA) ONE ×2 (08:50→21:07)
[2020-06-03] MEDS ORDERED: HEPARIN SOD (PORCINE) 5000UNITS/ML 1ML VIAL/SYRINGE ONE ×2 (08:50→21:07)
[2020-06-03] MEDS ORDERED: DOCUSATE SODIUM 100 MG CAP ONE ×2 (08:50→21:07)
[2020-06-03] MEDS ORDERED: GABAPENTIN 300 MG CAP As Ordered ONE ×3 (08:53→21:07)
[2020-06-03] MEDS ORDERED: IPRATROPIUM 0.5MG/ALBUTEROL 2.5MG INH SOL UD 3ML (DUONEB) ONE (10:00)
[2020-06-03] MEDS ORDERED: SYMBICORT 160/4.5MCG INHALER 6GM ONE (10:00)
[2020-06-03] MEDS ORDERED: DANTROLENE 25 MG CAP ONE (13:01)
[2020-06-03] MEDS ORDERED: ATORVASTATIN 20 MG TAB ONE (21:07)
[2020-06-03] MEDS ORDERED: SENNA 8.6 MG TAB (SENOKOT) ONE (21:07)
[2020-06-03] MEDS ORDERED: traZODone 25MG PER 1/2 TABLET ONE (21:07)
[2020-06-04] MEDS ORDERED: diazePAM 5 MG TAB As Ordered ONE (03:00)
[2020-06-04] MEDS ORDERED: HEPARIN SOD (PORCINE) 5000UNITS/ML 1ML VIAL/SYRINGE ONE ×2 (08:23→20:35)
[2020-06-04] MEDS ORDERED: ASPIRIN 81 MG ENTERIC TAB ONE (08:23)
[2020-06-04] MEDS ORDERED: TAMSULOSIN 0.4 MG CAP ONE (08:23)
[2020-06-04] MEDS ORDERED: FLUoxetine 20 MG CAP ONE (08:23)
[2020-06-04] MEDS ORDERED: ACETAMINOPHEN TAB 650MG DOSE (2X325MG) ONE (08:23)
[2020-06-04] MEDS ORDERED: levETIRAcetam 250MG TABLET (KEPPRA) ONE ×2 (08:23→20:35)
[2020-06-04] MEDS ORDERED: FAMOTIDINE 20 MG TAB ONE ×2 (08:23→20:35)
[2020-06-04] MEDS ORDERED: GABAPENTIN 300 MG CAP As Ordered ONE ×3 (08:24→20:34)
[2020-06-04] MEDS ORDERED: SYMBICORT 160/4.5MCG INHALER 6GM ONE (10:00)
[2020-06-04] MEDS ORDERED: IPRATROPIUM 0.5MG/ALBUTEROL 2.5MG INH SOL UD 3ML (DUONEB) ONE (10:00)
[2020-06-04] MEDS ORDERED: diazePAM 2 MG TAB As Ordered ONE ×2 (11:27→20:35)
[2020-06-04] MEDS ORDERED: ATORVASTATIN 20 MG TAB ONE (20:35)
[2020-06-05] MEDS ORDERED: levETIRAcetam 250MG TABLET (KEPPRA) ONE ×2 (08:48→20:15)
[2020-06-05] MEDS ORDERED: FAMOTIDINE 20 MG TAB ONE ×2 (08:48→20:15)
[2020-06-05] MEDS ORDERED: FLUoxetine 20 MG CAP ONE (08:48)
[2020-06-05] MEDS ORDERED: ACETAMINOPHEN TAB 650MG DOSE (2X325MG) ONE ×2 (08:48→20:15)
[2020-06-05] MEDS ORDERED: TAMSULOSIN 0.4 MG CAP ONE (08:48)
[2020-06-05] MEDS ORDERED: ASPIRIN 81 MG ENTERIC TAB ONE (08:48)
[2020-06-05] MEDS ORDERED: GABAPENTIN 300 MG CAP As Ordered ONE ×3 (08:49→20:15)
[2020-06-05] MEDS ORDERED: amLODIPine 5 MG TAB As Ordered ONE (08:49)
[2020-06-05] MEDS ORDERED: amLODIPine 10 MG TAB As Ordered ONE (08:49)
[2020-06-05] MEDS ORDERED: SYMBICORT 160/4.5MCG INHALER 6GM ONE (10:00)
[2020-06-05] MEDS ORDERED: IPRATROPIUM 0.5MG/ALBUTEROL 2.5MG INH SOL UD 3ML (DUONEB) ONE (10:00)
[2020-06-05] MEDS ORDERED: DANTROLENE 25 MG CAP ONE (11:00)
[2020-06-05] MEDS ORDERED: diazePAM 2 MG TAB As Ordered ONE ×2 (11:33→21:16)
[2020-06-05] MEDS ORDERED: SENNA 8.6 MG TAB (SENOKOT) ONE (20:15)
[2020-06-05] MEDS ORDERED: HEPARIN SOD (PORCINE) 5000UNITS/ML 1ML VIAL/SYRINGE ONE (20:15)
[2020-06-05] MEDS ORDERED: DOCUSATE SODIUM 100 MG CAP ONE (20:15)
[2020-06-05] MEDS ORDERED: traZODone 25MG PER 1/2 TABLET ONE (20:15)
[2020-06-05] MEDS ORDERED: ATORVASTATIN 20 MG TAB ONE (20:15)
[2020-06-06] MEDS ORDERED: ACETAMINOPHEN TAB 650MG DOSE (2X325MG) ONE (04:32)
[2020-06-06] MEDS ORDERED: amLODIPine 10 MG TAB ONE (07:52)
[2020-06-06] MEDS ORDERED: amLODIPine 5 MG TAB ONE (07:52)
[2020-06-06] MEDS ORDERED: amLODIPine 5 MG TAB As Ordered ONE (07:52)
[2020-06-06] MEDS ORDERED: DOCUSATE SODIUM 100 MG CAP ONE ×2 (07:52→20:27)
[2020-06-06] MEDS ORDERED: amLODIPine 10 MG TAB As Ordered ONE (07:52)
[2020-06-06] MEDS ORDERED: ASPIRIN 81 MG ENTERIC TAB ONE (07:52)
[2020-06-06] MEDS ORDERED: HEPARIN SOD (PORCINE) 5000UNITS/ML 1ML VIAL/SYRINGE ONE ×2 (07:52→20:27)
[2020-06-06] MEDS ORDERED: TAMSULOSIN 0.4 MG CAP ONE (07:52)
[2020-06-06] MEDS ORDERED: levETIRAcetam 250MG TABLET (KEPPRA) ONE ×2 (07:52→20:27)
[2020-06-06] MEDS ORDERED: FAMOTIDINE 20 MG TAB ONE ×2 (07:52→20:27)
[2020-06-06] MEDS ORDERED: GABAPENTIN 300 MG CAP As Ordered ONE ×3 (07:52→20:27)
[2020-06-06] MEDS ORDERED: FLUoxetine 20 MG CAP ONE (07:52)
[2020-06-06] MEDS ORDERED: diazePAM 2 MG TAB As Ordered ONE ×2 (08:11→20:28)
[2020-06-06] MEDS ORDERED: IPRATROPIUM 0.5MG/ALBUTEROL 2.5MG INH SOL UD 3ML (DUONEB) ONE (10:00)
[2020-06-06] MEDS ORDERED: SYMBICORT 160/4.5MCG INHALER 6GM ONE (10:00)
[2020-06-06] MEDS ORDERED: SENNA 8.6 MG TAB (SENOKOT) ONE (20:27)
[2020-06-06] MEDS ORDERED: ATORVASTATIN 20 MG TAB ONE (20:27)
[2020-06-07] MEDS ORDERED: HEPARIN SOD (PORCINE) 5000UNITS/ML 1ML VIAL/SYRINGE ONE ×2 (08:07→20:02)
[2020-06-07] MEDS ORDERED: levETIRAcetam 250MG TABLET (KEPPRA) ONE ×2 (08:07→20:02)
[2020-06-07] MEDS ORDERED: ASPIRIN 81 MG ENTERIC TAB ONE (08:07)
[2020-06-07] MEDS ORDERED: DOCUSATE SODIUM 100 MG CAP ONE ×2 (08:07→20:02)
[2020-06-07] MEDS ORDERED: FLUoxetine 20 MG CAP ONE (08:07)
[2020-06-07] MEDS ORDERED: FAMOTIDINE 20 MG TAB ONE ×2 (08:07→20:02)
[2020-06-07] MEDS ORDERED: TAMSULOSIN 0.4 MG CAP ONE (08:07)
[2020-06-07] MEDS ORDERED: GABAPENTIN 300 MG CAP As Ordered ONE ×3 (08:07→20:02)
[2020-06-07] MEDS ORDERED: diazePAM 2 MG TAB As Ordered ONE (08:08)
[2020-06-07] MEDS ORDERED: IPRATROPIUM 0.5MG/ALBUTEROL 2.5MG INH SOL UD 3ML (DUONEB) ONE (10:00)
[2020-06-07] MEDS ORDERED: SYMBICORT 160/4.5MCG INHALER 6GM ONE (10:00)
[2020-06-07] MEDS ORDERED: ATORVASTATIN 20 MG TAB ONE (20:02)
[2020-06-07] MEDS ORDERED: SENNA 8.6 MG TAB (SENOKOT) ONE (20:02)
[2020-06-07] MEDS ORDERED: traZODone 25MG PER 1/2 TABLET ONE (20:02)
[2020-06-08] MEDS ORDERED: HEPARIN SOD (PORCINE) 5000UNITS/ML 1ML VIAL/SYRINGE ONE ×2 (07:48→20:50)
[2020-06-08] MEDS ORDERED: levETIRAcetam 250MG TABLET (KEPPRA) ONE ×2 (07:48→20:50)
[2020-06-08] MEDS ORDERED: DOCUSATE SODIUM 100 MG CAP ONE (07:48)
[2020-06-08] MEDS ORDERED: FAMOTIDINE 20 MG TAB ONE ×2 (07:48→20:50)
[2020-06-08] MEDS ORDERED: FLUoxetine 20 MG CAP ONE (07:48)
[2020-06-08] MEDS ORDERED: GABAPENTIN 300 MG CAP As Ordered ONE ×3 (07:48→20:50)
[2020-06-08] MEDS ORDERED: TAMSULOSIN 0.4 MG CAP ONE (07:48)
[2020-06-08] MEDS ORDERED: ASPIRIN 81 MG ENTERIC TAB ONE (07:48)
[2020-06-08] MEDS ORDERED: ACETAMINOPHEN TAB 650MG DOSE (2X325MG) ONE (09:53)
[2020-06-08] MEDS ORDERED: IPRATROPIUM 0.5MG/ALBUTEROL 2.5MG INH SOL UD 3ML (DUONEB) ONE (10:00)
[2020-06-08] MEDS ORDERED: SYMBICORT 160/4.5MCG INHALER 6GM ONE (10:00)
[2020-06-08] MEDS ORDERED: ATORVASTATIN 20 MG TAB ONE (20:50)
[2020-06-08] MEDS ORDERED: traZODone 25MG PER 1/2 TABLET ONE (20:50)
[2020-06-09] MEDS ORDERED: levETIRAcetam 250MG TABLET (KEPPRA) ONE ×2 (07:37→19:51)
[2020-06-09] MEDS ORDERED: TAMSULOSIN 0.4 MG CAP ONE (07:37)
[2020-06-09] MEDS ORDERED: FLUoxetine 20 MG CAP ONE (07:37)
[2020-06-09] MEDS ORDERED: HEPARIN SOD (PORCINE) 5000UNITS/ML 1ML VIAL/SYRINGE ONE ×2 (07:37→19:51)
[2020-06-09] MEDS ORDERED: ASPIRIN 81 MG ENTERIC TAB ONE (07:37)
[2020-06-09] MEDS ORDERED: FAMOTIDINE 20 MG TAB ONE ×2 (07:37→19:51)
[2020-06-09] MEDS ORDERED: GABAPENTIN 300 MG CAP As Ordered ONE ×3 (07:37→19:52)
[2020-06-09] MEDS ORDERED: IPRATROPIUM 0.5MG/ALBUTEROL 2.5MG INH SOL UD 3ML (DUONEB) ONE (10:00)
[2020-06-09] MEDS ORDERED: SYMBICORT 160/4.5MCG INHALER 6GM ONE (10:00)
[2020-06-09] MEDS ORDERED: traZODone 25MG PER 1/2 TABLET ONE (19:51)
[2020-06-09] MEDS ORDERED: ATORVASTATIN 20 MG TAB ONE (19:51)
[2020-06-09] MEDS ORDERED: ACETAMINOPHEN TAB 650MG DOSE (2X325MG) ONE (19:51)
[2020-06-10] MEDS ORDERED: FAMOTIDINE 20 MG TAB ONE ×2 (08:19→19:55)
[2020-06-10] MEDS ORDERED: GABAPENTIN 300 MG CAP As Ordered ONE ×2 (08:19→19:55)
[2020-06-10] MEDS ORDERED: HEPARIN SOD (PORCINE) 5000UNITS/ML 1ML VIAL/SYRINGE ONE ×2 (08:19→19:55)
[2020-06-10] MEDS ORDERED: FLUoxetine 20 MG CAP ONE (08:19)
[2020-06-10] MEDS ORDERED: levETIRAcetam 250MG TABLET (KEPPRA) ONE ×2 (08:19→19:55)
[2020-06-10] MEDS ORDERED: TAMSULOSIN 0.4 MG CAP ONE (08:19)
[2020-06-10] MEDS ORDERED: ASPIRIN 81 MG ENTERIC TAB ONE (08:19)
[2020-06-10] MEDS ORDERED: SYMBICORT 160/4.5MCG INHALER 6GM ONE (10:00)
[2020-06-10] MEDS ORDERED: IPRATROPIUM 0.5MG/ALBUTEROL 2.5MG INH SOL UD 3ML (DUONEB) ONE (10:00)
[2020-06-10] MEDS ORDERED: ATORVASTATIN 20 MG TAB ONE (19:55)
[2020-06-10] MEDS ORDERED: traZODone 25MG PER 1/2 TABLET ONE (19:55)
[2020-06-10] MEDS ORDERED: diazePAM 2 MG TAB As Ordered ONE (23:15)
[2020-06-11] MEDS ORDERED: ASPIRIN 81 MG ENTERIC TAB ONE (07:46)
[2020-06-11] MEDS ORDERED: FAMOTIDINE 20 MG TAB ONE ×2 (07:46→20:49)
[2020-06-11] MEDS ORDERED: levETIRAcetam 250MG TABLET (KEPPRA) ONE ×2 (07:46→20:49)
[2020-06-11] MEDS ORDERED: FLUoxetine 20 MG CAP ONE (07:46)
[2020-06-11] MEDS ORDERED: TAMSULOSIN 0.4 MG CAP ONE (07:46)
[2020-06-11] MEDS ORDERED: HEPARIN SOD (PORCINE) 5000UNITS/ML 1ML VIAL/SYRINGE ONE ×2 (07:46→20:49)
[2020-06-11] MEDS ORDERED: IPRATROPIUM 0.5MG/ALBUTEROL 2.5MG INH SOL UD 3ML (DUONEB) ONE (10:00)
[2020-06-11] MEDS ORDERED: SYMBICORT 160/4.5MCG INHALER 6GM ONE (10:00)
[2020-06-11] MEDS ORDERED: GABAPENTIN 300 MG CAP As Ordered ONE ×3 (10:06→20:49)
[2020-06-11] MEDS ORDERED: DOCUSATE SODIUM 100 MG CAP ONE (20:49)
[2020-06-11] MEDS ORDERED: ACETAMINOPHEN TAB 650MG DOSE (2X325MG) ONE (20:49)
[2020-06-11] MEDS ORDERED: SENNA 8.6 MG TAB (SENOKOT) ONE (20:49)
[2020-06-11] MEDS ORDERED: traZODone 25MG PER 1/2 TABLET ONE (20:49)
[2020-06-11] MEDS ORDERED: ATORVASTATIN 20 MG TAB ONE (20:49)
[2020-06-12] MEDS ORDERED: diazePAM 2 MG TAB As Ordered ONE ×2 (05:06→20:59)
[2020-06-12] MEDS ORDERED: levETIRAcetam 250MG TABLET (KEPPRA) ONE ×2 (08:06→20:30)
[2020-06-12] MEDS ORDERED: FLUoxetine 20 MG CAP ONE (08:06)
[2020-06-12] MEDS ORDERED: TAMSULOSIN 0.4 MG CAP ONE (08:06)
[2020-06-12] MEDS ORDERED: FAMOTIDINE 20 MG TAB ONE ×2 (08:06→20:30)
[2020-06-12] MEDS ORDERED: GABAPENTIN 300 MG CAP As Ordered ONE ×3 (08:06→20:30)
[2020-06-12] MEDS ORDERED: HEPARIN SOD (PORCINE) 5000UNITS/ML 1ML VIAL/SYRINGE ONE ×2 (08:06→20:30)
[2020-06-12] MEDS ORDERED: ASPIRIN 81 MG ENTERIC TAB ONE (08:06)
[2020-06-12] MEDS ORDERED: SYMBICORT 160/4.5MCG INHALER 6GM ONE (10:00)
[2020-06-12] MEDS ORDERED: IPRATROPIUM 0.5MG/ALBUTEROL 2.5MG INH SOL UD 3ML (DUONEB) ONE (10:00)
[2020-06-12] MEDS ORDERED: traZODone 25MG PER 1/2 TABLET ONE (20:30)
[2020-06-12] MEDS ORDERED: ATORVASTATIN 20 MG TAB ONE (20:30)
[2020-06-12] MEDS ORDERED: DOCUSATE SODIUM 100 MG CAP ONE (20:30)
[2020-06-12] MEDS ORDERED: SENNA 8.6 MG TAB (SENOKOT) ONE (20:30)
[2020-06-13] MEDS ORDERED: levETIRAcetam 250MG TABLET (KEPPRA) ONE (08:24)
[2020-06-13] MEDS ORDERED: FAMOTIDINE 20 MG TAB ONE (08:24)
[2020-06-13] MEDS ORDERED: FLUoxetine 20 MG CAP ONE (08:24)
[2020-06-13] MEDS ORDERED: TAMSULOSIN 0.4 MG CAP ONE (08:24)
[2020-06-13] MEDS ORDERED: HEPARIN SOD (PORCINE) 5000UNITS/ML 1ML VIAL/SYRINGE ONE (08:24)
[2020-06-13] MEDS ORDERED: GABAPENTIN 300 MG CAP As Ordered ONE ×3 (08:24→21:03)
[2020-06-13] MEDS ORDERED: ASPIRIN 81 MG ENTERIC TAB ONE (08:24)
[2020-06-13] MEDS ORDERED: SYMBICORT 160/4.5MCG INHALER 6GM ONE (10:00)
[2020-06-13] MEDS ORDERED: IPRATROPIUM 0.5MG/ALBUTEROL 2.5MG INH SOL UD 3ML (DUONEB) ONE (10:00)
[2020-06-13] MEDS ORDERED: ATORVASTATIN 20 MG TAB As Ordered ONE (21:03)
[2020-06-13] MEDS ORDERED: HEPARIN SOD (PORCINE) 5000UNITS/ML 1ML VIAL/SYRINGE As Ordered ONE (21:04)
[2020-06-13] MEDS ORDERED: FAMOTIDINE 20 MG TAB As Ordered ONE (21:04)
[2020-06-13] MEDS ORDERED: traZODone 25MG PER 1/2 TABLET As Ordered ONE (21:04)
[2020-06-13] MEDS ORDERED: diazePAM 2 MG TAB As Ordered ONE (21:04)
[2020-06-13] MEDS ORDERED: levETIRAcetam 250MG TABLET (KEPPRA) As Ordered ONE (21:04)
[2020-06-14] MEDS ORDERED: HEPARIN SOD (PORCINE) 5000UNITS/ML 1ML VIAL/SYRINGE As Ordered ONE ×2 (08:42→20:04)
[2020-06-14] MEDS ORDERED: FAMOTIDINE 20 MG TAB As Ordered ONE ×2 (08:43→20:05)
[2020-06-14] MEDS ORDERED: TAMSULOSIN 0.4 MG CAP As Ordered ONE (08:43)
[2020-06-14] MEDS ORDERED: FLUoxetine 20 MG CAP As Ordered ONE (08:45)
[2020-06-14] MEDS ORDERED: GABAPENTIN 300 MG CAP As Ordered ONE ×3 (08:45→20:04)
[2020-06-14] MEDS ORDERED: levETIRAcetam 250MG TABLET (KEPPRA) As Ordered ONE ×2 (08:46→20:04)
[2020-06-14] MEDS ORDERED: ASPIRIN 81 MG ENTERIC TAB As Ordered ONE (08:55)
[2020-06-14] MEDS ORDERED: IPRATROPIUM 0.5MG/ALBUTEROL 2.5MG INH SOL UD 3ML (DUONEB) ONE (10:00)
[2020-06-14] MEDS ORDERED: SYMBICORT 160/4.5MCG INHALER 6GM ONE (10:00)
[2020-06-14] MEDS ORDERED: diazePAM 2 MG TAB As Ordered ONE ×3 (11:20→20:05)
[2020-06-14] MEDS ORDERED: ACETAMINOPHEN TAB 650MG DOSE (2X325MG) As Ordered ONE (14:17)
[2020-06-14] MEDS ORDERED: ATORVASTATIN 20 MG TAB As Ordered ONE (20:04)
[2020-06-14] MEDS ORDERED: ACETAMINOPHEN 325 MG TAB As Ordered ONE (20:11)
[2020-06-14] MEDS ORDERED: traZODone 25MG PER 1/2 TABLET As Ordered ONE (20:11)
[2020-06-15] MEDS ORDERED: ACETAMINOPHEN TAB 650MG DOSE (2X325MG) As Ordered ONE ×2 (06:38→20:03)
[2020-06-15] MEDS ORDERED: diazePAM 2 MG TAB As Ordered ONE ×3 (06:45→20:06)
[2020-06-15] MEDS ORDERED: levETIRAcetam 250MG TABLET (KEPPRA) As Ordered ONE ×2 (09:24→20:06)
[2020-06-15] MEDS ORDERED: HEPARIN SOD (PORCINE) 5000UNITS/ML 1ML VIAL/SYRINGE As Ordered ONE ×2 (09:24→20:03)
[2020-06-15] MEDS ORDERED: GABAPENTIN 300 MG CAP As Ordered ONE ×3 (09:24→20:05)
[2020-06-15] MEDS ORDERED: ASPIRIN 81 MG CHEW TABLET As Ordered ONE (09:24)
[2020-06-15] MEDS ORDERED: FLUoxetine 20 MG CAP As Ordered ONE (09:24)
[2020-06-15] MEDS ORDERED: TAMSULOSIN 0.4 MG CAP As Ordered ONE (09:25)
[2020-06-15] MEDS ORDERED: FAMOTIDINE 20 MG TAB As Ordered ONE ×2 (09:25→20:06)
[2020-06-15] MEDS ORDERED: SYMBICORT 160/4.5MCG INHALER 6GM ONE (10:00)
[2020-06-15] MEDS ORDERED: IPRATROPIUM 0.5MG/ALBUTEROL 2.5MG INH SOL UD 3ML (DUONEB) ONE (10:00)
[2020-06-15] MEDS ORDERED: ATORVASTATIN 20 MG TAB As Ordered ONE (20:05)
[2020-06-15] MEDS ORDERED: traZODone 25MG PER 1/2 TABLET As Ordered ONE (20:06)
[2020-06-16] MEDS ORDERED: FLUoxetine 20 MG CAP As Ordered ONE (06:19)
[2020-06-16] MEDS ORDERED: levETIRAcetam 250MG TABLET (KEPPRA) As Ordered ONE ×2 (06:20→21:12)
[2020-06-16] MEDS ORDERED: HEPARIN SOD (PORCINE) 5000UNITS/ML 1ML VIAL/SYRINGE As Ordered ONE ×2 (06:20→21:12)
[2020-06-16] MEDS ORDERED: ACETAMINOPHEN TAB 650MG DOSE (2X325MG) As Ordered ONE ×2 (06:20→20:07)
[2020-06-16] MEDS ORDERED: GABAPENTIN 300 MG CAP As Ordered ONE ×3 (06:20→21:12)
[2020-06-16] MEDS ORDERED: diazePAM 2 MG TAB As Ordered ONE ×3 (06:20→21:12)
[2020-06-16] MEDS ORDERED: ASPIRIN 81 MG ENTERIC TAB As Ordered ONE (06:21)
[2020-06-16] MEDS ORDERED: FAMOTIDINE 20 MG TAB As Ordered ONE ×2 (06:21→21:12)
[2020-06-16] MEDS ORDERED: TAMSULOSIN 0.4 MG CAP As Ordered ONE (06:21)
[2020-06-16] MEDS ORDERED: SYMBICORT 160/4.5MCG INHALER 6GM ONE (10:00)
[2020-06-16] MEDS ORDERED: IPRATROPIUM 0.5MG/ALBUTEROL 2.5MG INH SOL UD 3ML (DUONEB) ONE (10:00)
[2020-06-16] MEDS ORDERED: ATORVASTATIN 20 MG TAB As Ordered ONE (21:12)
[2020-06-16] MEDS ORDERED: traZODone 25MG PER 1/2 TABLET As Ordered ONE (21:12)
[2020-06-17] MEDS ORDERED: ACETAMINOPHEN TAB 650MG DOSE (2X325MG) As Ordered ONE (06:23)
[2020-06-17] MEDS ORDERED: HEPARIN SOD (PORCINE) 5000UNITS/ML 1ML VIAL/SYRINGE As Ordered ONE ×2 (08:03→20:28)
[2020-06-17] MEDS ORDERED: FLUoxetine 20 MG CAP As Ordered ONE (08:03)
[2020-06-17] MEDS ORDERED: GABAPENTIN 300 MG CAP As Ordered ONE ×3 (08:03→20:27)
[2020-06-17] MEDS ORDERED: levETIRAcetam 250MG TABLET (KEPPRA) As Ordered ONE ×2 (08:03→20:28)
[2020-06-17] MEDS ORDERED: TAMSULOSIN 0.4 MG CAP As Ordered ONE (08:04)
[2020-06-17] MEDS ORDERED: diazePAM 2 MG TAB As Ordered ONE ×3 (08:04→20:28)
[2020-06-17] MEDS ORDERED: ASPIRIN 81 MG ENTERIC TAB As Ordered ONE (08:04)
[2020-06-17] MEDS ORDERED: FAMOTIDINE 20 MG TAB As Ordered ONE ×2 (08:04→20:29)
[2020-06-17] MEDS ORDERED: IPRATROPIUM 0.5MG/ALBUTEROL 2.5MG INH SOL UD 3ML (DUONEB) ONE (10:00)
[2020-06-17] MEDS ORDERED: SYMBICORT 160/4.5MCG INHALER 6GM ONE (10:00)
[2020-06-17] MEDS ORDERED: levETIRAcetam 250MG TABLET (KEPPRA) ONE (13:00)
[2020-06-17] MEDS ORDERED: ATORVASTATIN 20 MG TAB As Ordered ONE (20:28)
[2020-06-17] MEDS ORDERED: traZODone 25MG PER 1/2 TABLET As Ordered ONE (20:30)
[2020-06-18] MEDS ORDERED: HEPARIN SOD (PORCINE) 5000UNITS/ML 1ML VIAL/SYRINGE As Ordered ONE (08:00)
[2020-06-18] MEDS ORDERED: FLUoxetine 20 MG CAP As Ordered ONE (08:00)
[2020-06-18] MEDS ORDERED: TAMSULOSIN 0.4 MG CAP As Ordered ONE (08:01)
[2020-06-18] MEDS ORDERED: FAMOTIDINE 20 MG TAB As Ordered ONE (08:01)
[2020-06-18] MEDS ORDERED: ASPIRIN 81 MG ENTERIC TAB As Ordered ONE (08:01)
[2020-06-18] MEDS ORDERED: diazePAM 2 MG TAB As Ordered ONE (08:01)
[2020-06-18] MEDS ORDERED: GABAPENTIN 300 MG CAP As Ordered ONE (08:02)
[2020-06-18] MEDS ORDERED: IPRATROPIUM 0.5MG/ALBUTEROL 2.5MG INH SOL UD 3ML (DUONEB) ONE (10:00)
[2020-06-18] MEDS ORDERED: SYMBICORT 160/4.5MCG INHALER 6GM ONE (10:00)
[2020-06-18] MEDS ORDERED: ACETAMINOPHEN TAB 650MG DOSE (2X325MG) PO PRN (19:00)
[2020-06-18] MEDS ORDERED: MIRALAX *UNIT DOSE* 17GM PACKET PO PRN (19:00)
[2020-06-18] MEDS ORDERED: traZODone 25MG PER 1/2 TABLET PO PRN (19:00)
[2020-06-18] MEDS ORDERED: SYMBICORT 160/4.5MCG INHALER 6GM INH SCH (20:00)
[2020-06-18] MEDS ORDERED: IPRATROPIUM 0.5MG/ALBUTEROL 2.5MG INH SOL UD 3ML (DUONEB) NEB SCH (20:00)
[2020-06-18] MEDS ORDERED: REMEDY PHYTOPLEX Z-GUARD PASTE 113GM TUBE (FROM STOREROOM PRODUCT) TOP SCH (21:00)
[2020-06-18] MEDS ORDERED: FAMOTIDINE 20 MG TAB PO SCH (21:00)
[2020-06-18] MEDS ORDERED: diazePAM 2 MG TAB PO SCH (21:00)
[2020-06-18] MEDS ORDERED: ATORVASTATIN 20 MG TAB PO SCH (21:00)
[2020-06-18] MEDS ORDERED: HEPARIN SOD (PORCINE) 5000UNITS/ML 1ML VIAL/SYRINGE SQ SCH (21:00)
[2020-06-18] MEDS ORDERED: GABAPENTIN 300 MG CAP PO SCH (21:00)
[2020-06-18] MEDS ORDERED: levETIRAcetam 250MG TABLET (KEPPRA) PO SCH (21:00)
[2020-06-18] MEDS ORDERED: NYSTATIN 100,000 UNITS/GM TOPICAL PWD 15 GM TOP SCH (21:00)
[2020-06-19] MEDS ORDERED: FLUoxetine 20 MG CAP PO SCH (09:00)
[2020-06-19] MEDS ORDERED: ASPIRIN 81 MG ENTERIC TAB PO SCH (09:00)
[2020-06-19] MEDS ORDERED: TAMSULOSIN 0.4 MG CAP PO SCH (09:00)
--- NOTE | 2020-06-19 14:26 | IPNPDOC ---
PM&R Progress Note DATE OF SERVICE: May 23, 2020 F[facility]iller Progress Note Subjective: Patient seen in therapy, pointing to his right arm and leg, and grimacing in pain when passively ranged. REVIEW OF SYSTEMS: The following is a completed review of systems and has been reviewed. Review of systems otherwise unremarkable. *Difficult to assess due to global aphasia, but patient does not appear to be in pain GENITOURINARY: +neely MUSCULOSKELETAL: right sided weakness NEUROLOGICAL:+right sided paresis with aphasia SKIN: no rash PSYCHIATRIC: +aphasia All other review of systems found to be negative. PHYSICAL EXAMINATION: VITAL SIGNS: Please see below. GENERAL: Pleasant and cooperative. No acute distress. HEENT: PERRL. Extraocular movements intact. Clear conjunctiva, righ facial droop CARDIOVASCULAR: Regular rate and rhythm. No murmurs, rubs, or gallops LUNGS: Clear to auscultation bilaterally. No wheezes. No rhonchi ABDOMEN: Soft, nontender, nondistended. Positive bowel sounds. Normal active bowel sounds. old scars NEUROLOGICAL: +global aphasia, Cranial nerves II through XII grossly intact. Sensation grossly intact to light touch throughout although difficult to assess due to aphasia 3+patellar reflex, +RLE clonus 2/4 tone RUE EXTREMITIES: 5\5 strength left upper extremities. 0\5 strength right lower and upper extremity. 5/5 strength in left lower extremity. SKIN: intact ASSESSMENT:45-year-old M with past medical history of Asthma who presents status post large left MCA infarct PLAN: 1. Rehab- PT/OT advance mobility and ADLs, stretch/strengthen/maintain ROM all 4 limbs 2. LAPPER- evaluate for dysphagia and to treat global aphasia, oral care TID 3. Cardiac- HTN c/u amlodipine -medicine consulted to assist in management 4. Neuro- large left MCA infarct with dense right sided hemiparesis and global aphasia, c/u ASA and statin -c/u prozac for motor recovery -monitor for tone, c/u resting hand splint and daily stretching -patient with seizure-like activity in OT, vitals stable and appears back to baseline- CTH negative for new bleed, prolactin not elevated, EEG ordered and case discussed with Dr. Cardenas who has started patient on Keppra for suspected seizures 5. Resp- hx of asthma- duonebs, incentive spirometry 6. GI ppx- pepcid 7. DVT ppx- heparin and teds 8. Pain- tylenol prn 9. - c/u neely and flomax, will consider TOV this week, however concern patient will not be able to communicate his need to urinate effectively 10. Dispo- tbd Allergies Coded Allergies: SEAFOOD (Unverified Allergy, Unknown, SHELLFISH, 05/17/20) Current Medications Current Medications Current Medications Medications (Trade) Dose Ordered Sig/Live Route PRN Reason Start Time Stop Time Status Last Admin Dose Admin Acetaminophen (Tylenol Tab) 650 mg Q4HP PRN PO fever/MILD PAIN (PS 1-4) 05/17/20 13:15 06/16/20 13:30 DC 05/22/20 01:14 Acetaminophen (Tylenol Tab) 650 mg Q4HP PRN PO PAIN / FEVER 06/18/20 19:00 Albuterol/ Ipratropium (Duoneb (Ipr 0.5mg/Alb 2.5mg)) 3 ml RTID NEB 05/17/20 20:00 06/16/20 20:21 DC 05/20/20 13:10 Albuterol/ Ipratropium (Duoneb (Ipr 0.5mg/Alb 2.5mg)) 3 ml RTID NEB 06/18/20 20:00 Amlodipine Besylate (Norvasc) 2.5 mg DAILY PO 05/18/20 09:00 06/17/20 09:00 DC 05/23/20 11:15 Amlodipine Besylate (Norvasc) 2.5 mg DAILY PO 06/19/20 09:00 Aspirin (Ecotrin) 81 mg DAILY PO 05/18/20 09:00 06/17/20 09:00 DC 05/23/20 11:13 Aspirin (Ecotrin) 81 mg DAILY PO 06/19/20 09:00 Atorvastatin Calcium (Lipitor) 80 mg QHS PO 05/17/20 21:00 06/16/20 21:00 DC 05/22/20 20:50 Atorvastatin Calcium (Lipitor) 80 mg QHS PO 06/18/20 21:00 Budesonide/ Formoterol Fumarate (Symbicort 160/ 4.5mcg) 2 puff RBID INH 05/17/20 20:00 06/16/20 20:21 DC 05/23/20 07:28 Budesonide/ Formoterol Fumarate (Symbicort 160/ 4.5mcg) 2 puff RBID INH 06/18/20 20:00 Diazepam (Valium) 2 mg TID PO 06/18/20 21:00 Docusate Sodium (Colace) 100 mg BID PO 05/17/20 21:00 06/16/20 21:00 DC 05/23/20 11:14 Famotidine (Pepcid) 20 mg BID PO 05/17/20 21:00 06/16/20 21:00 DC 05/23/20 11:14 Famotidine (Pepcid) 20 mg BID PO 06/18/20 21:00 Fluoxetine HCl (PROzac) 20 mg DAILY PO 05/18/20 09:00 06/17/20 09:00 DC 05/23/20 11:14 Fluoxetine HCl (PROzac) 20 mg DAILY PO 06/19/20 09:00 Gabapentin (Neurontin) 600 mg TID PO 06/18/20 21:00 Heparin Sodium (Heparin (Flush)) 200 units ASDIRECTED PRN IV SEE LABEL COMMENTS 05/18/20 01:45 Cancel Heparin Sodium (Heparin (Flush)) 200 units PICC IV 05/18/20 17:00 Cancel Heparin Sodium (Porcine) (Heparin) 5,000 units Q12H SC 05/17/20 21:00 06/15/20 13:13 DC 05/23/20 11:17 Heparin Sodium (Porcine) (Heparin) 5,000 units Q12H SQ 06/18/20 21:00 Home Med (Med Rec Complete!) ASDIRECTED XX 05/17/20 16:15 05/17/20 16:09 DC Levetiracetam (Keppra) 750 mg BID PO 05/22/20 21:00 06/18/20 08:03 DC 05/23/20 11:15 Levetiracetam (Keppra) 750 mg BID PO 06/18/20 21:00 Nystatin (Mycostatin Powder, Nystop) APPLY TO GROIN TID TOP 06/18/20 21:00 Polyethylene Glycol (Miralax) 1 pkt DAILY PRN PO CONSTIPATION 06/18/20 19:00 Senna (Senokot) 1 tab QHS PO 05/17/20 21:00 06/16/20 21:00 DC 05/22/20 20:51 Sodium Chloride (Saline Lock Flush) 2 ml ASDIRECTED PRN IV SEE LABEL COMMENTS 05/22/20 03:30 05/22/20 05:51 DC Sodium Chloride (Saline Lock Flush) 2 ml SLF IV 05/22/20 06:00 05/22/20 05:51 DC Sodium Chloride (Saline Lock Flush) 10 ml ASDIRECTED PRN IV SEE LABEL COMMENTS 05/18/20 01:45 Cancel Sodium Chloride (Saline Lock Flush) 10 ml PICC IV 05/18/20 17:00 Cancel Tamsulosin HCl (Flomax) 0.4 mg DAILY PO 05/18/20 09:00 06/17/20 09:00 DC 05/23/20 11:16 Tamsulosin HCl (Flomax) 0.4 mg DAILY PO 06/19/20 09:00 Trazodone HCl (Desyrel) 25 mg QHS PRN PO INSOMNIA 06/18/20 19:00 Trazodone HCl (Desyrel) 25 mg QHSP PRN PO INSOMNIA 05/17/20 13:15 06/16/20 13:30 DC 05/22/20 01:14 OMAR CABELLO MD Jun 19, 2020 14:26
[2020-06-20 12:05] LABS: BASO % 0.4 % (0.0-1.0); EOS # 0.2 10^3/uL (0.0-0.5); EOS % 4.6 % (0.0-3.0); HEMATOCRIT 43.3 % (42.0-52.0); HEMOGLOBIN 14.5 g/dl (13.5-17.5); LYMPH # 1.6 10^3/uL (1.5-5.0); LYMPH % 30.6 % (24.0-44.0); MEAN CORPUSCULAR HEMOGLOBIN 30.4 pg (27.0-33.0); MEAN CORPUSCULAR HGB CONC 33.5 g/dl (32.0-36.5); MEAN CORPUSCULAR VOLUME 90.8 fl (80.0-96.0); MONO # 0.6 10^3/uL (0.0-0.8); MONO % 10.5 % (0.0-5.0); NEUTROPHILS # 2.8 10^3/uL (1.5-8.5); NEUTROPHILS % 53.5 % (36.0-66.0); PLATELET COUNT, AUTOMATED 240 10^3/uL (150-450); RED BLOOD COUNT 4.77 10^6/uL (4.30-6.10); WHITE BLOOD COUNT 5.3 10^3/uL (4.0-10.0)
[2020-06-23 23:01] LABS: HEMOGLOBIN 14.1 g/dl (13.5-17.5); RED BLOOD COUNT 4.58 10^6/uL (4.30-6.10); WHITE BLOOD COUNT 5.6 10^3/uL (4.0-10.0)
[2020-06-23 23:02] LABS: BASO % 0.2 % (0.0-1.0); EOS % 3.2 % (0.0-3.0); HEMATOCRIT 41.2 % (42.0-52.0); LYMPH # 1.4 10^3/uL (1.5-5.0); LYMPH % 25.5 % (24.0-44.0); MEAN CORPUSCULAR HEMOGLOBIN 30.8 pg (27.0-33.0); MEAN CORPUSCULAR HGB CONC 34.2 g/dl (32.0-36.5); MONO # 0.7 10^3/uL (0.0-0.8); MONO % 12.3 % (0.0-5.0); NEUTROPHILS # 3.3 10^3/uL (1.5-8.5); NEUTROPHILS % 58.3 % (36.0-66.0); PLATELET COUNT, AUTOMATED 236 10^3/uL (150-450)
[2020-06-23 23:03] LABS: EOS # 0.2 10^3/uL (0.0-0.5)
[2020-07-03 14:19] LABS: HEMATOCRIT 41.6 % (42.0-52.0); HEMOGLOBIN 13.7 g/dl (13.5-17.5); MEAN CORPUSCULAR HEMOGLOBIN 30.1 pg (27.0-33.0); MEAN CORPUSCULAR HGB CONC 32.9 g/dl (32.0-36.5); MEAN CORPUSCULAR VOLUME 91.4 fl (80.0-96.0); PLATELET COUNT, AUTOMATED 324 10^3/uL (150-450); RED BLOOD COUNT 4.55 10^6/uL (4.30-6.10); WHITE BLOOD COUNT 5.2 10^3/uL (4.0-10.0)
[2020-07-09 13:34] LABS: BLOOD UREA NITROGEN 12 MG/DL (7-18); CALCIUM LEVEL 9.1 MG/DL (8.5-10.1); CARBON DIOXIDE LEVEL 24 MEQ/L (21-32); CHLORIDE LEVEL 108 MEQ/L (98-107); CREATININE FOR GFR 1.18 MG/DL (0.70-1.30); GLOMERULAR FILTRATION RATE > 60.0 (>60); GLUCOSE, FASTING 148 MG/DL (70-100); POTASSIUM SERUM 4.2 MEQ/L (3.5-5.1); SODIUM LEVEL 139 MEQ/L (136-145)
[2020-07-18 23:13] LABS: BASO % 0.4 % (0.0-1.0); EOS # 0.3 10^3/uL (0.0-0.5); EOS % 5.1 % (0.0-3.0); HEMATOCRIT 44.8 % (42.0-52.0); LYMPH # 1.5 10^3/uL (1.5-5.0); LYMPH % 31.5 % (24.0-44.0); MEAN CORPUSCULAR HEMOGLOBIN 30.3 pg (27.0-33.0); MEAN CORPUSCULAR HGB CONC 33.5 g/dl (32.0-36.5); MEAN CORPUSCULAR VOLUME 90.5 fl (80.0-96.0); MONO # 0.6 10^3/uL (0.0-0.8); MONO % 11.5 % (0.0-5.0); NEUTROPHILS # 2.5 10^3/uL (1.5-8.5); NEUTROPHILS % 51.3 % (36.0-66.0); PLATELET COUNT, AUTOMATED 335 10^3/uL (150-450); RED BLOOD COUNT 4.95 10^6/uL (4.30-6.10); WHITE BLOOD COUNT 4.9 10^3/uL (4.0-10.0)
[2020-07-23 13:46] LABS: BASO % 0.4 % (0.0-1.0); EOS # 0.3 10^3/uL (0.0-0.5); HEMATOCRIT 42.7 % (42.0-52.0); LYMPH # 1.7 10^3/uL (1.5-5.0); LYMPH % 33.5 % (24.0-44.0); MEAN CORPUSCULAR HEMOGLOBIN 30.2 pg (27.0-33.0); MEAN CORPUSCULAR HGB CONC 32.8 g/dl (32.0-36.5); MEAN CORPUSCULAR VOLUME 92.2 fl (80.0-96.0); MONO # 0.6 10^3/uL (0.0-0.8); MONO % 11.2 % (0.0-5.0); NEUTROPHILS # 2.6 10^3/uL (1.5-8.5); NEUTROPHILS % 49.3 % (36.0-66.0); PLATELET COUNT, AUTOMATED 268 10^3/uL (150-450); RED BLOOD COUNT 4.63 10^6/uL (4.30-6.10); WHITE BLOOD COUNT 5.2 10^3/uL (4.0-10.0)
[2020-07-31 09:26] LABS: BASO % 0.3 % (0.0-1.0); EOS # 0.2 10^3/uL (0.0-0.5); EOS % 3.8 % (0.0-3.0); HEMATOCRIT 42.3 % (42.0-52.0); HEMOGLOBIN 14.1 g/dl (13.5-17.5); LYMPH # 1.5 10^3/uL (1.5-5.0); MEAN CORPUSCULAR HEMOGLOBIN 30.6 pg (27.0-33.0); MEAN CORPUSCULAR HGB CONC 33.3 g/dl (32.0-36.5); MEAN CORPUSCULAR VOLUME 91.8 fl (80.0-96.0); MONO # 0.6 10^3/uL (0.0-0.8); MONO % 10.8 % (0.0-5.0); NEUTROPHILS # 3.4 10^3/uL (1.5-8.5); NEUTROPHILS % 58.8 % (36.0-66.0); PLATELET COUNT, AUTOMATED 232 10^3/uL (150-450); RED BLOOD COUNT 4.61 10^6/uL (4.30-6.10); WHITE BLOOD COUNT 5.7 10^3/uL (4.0-10.0)
[2020-08-03 09:13] LABS: BASO % 0.3 % (0.0-1.0); EOS # 0.3 10^3/uL (0.0-0.5); EOS % 4.4 % (0.0-3.0); HEMATOCRIT 46.2 % (42.0-52.0); HEMOGLOBIN 15.3 g/dl (13.5-17.5); LYMPH # 1.6 10^3/uL (1.5-5.0); LYMPH % 26.3 % (24.0-44.0); MEAN CORPUSCULAR HEMOGLOBIN 30.5 pg (27.0-33.0); MEAN CORPUSCULAR HGB CONC 33.1 g/dl (32.0-36.5); MONO # 0.5 10^3/uL (0.0-0.8); MONO % 9.2 % (0.0-5.0); NEUTROPHILS # 3.5 10^3/uL (1.5-8.5); PLATELET COUNT, AUTOMATED 274 10^3/uL (150-450); RED BLOOD COUNT 5.02 10^6/uL (4.30-6.10); WHITE BLOOD COUNT 5.9 10^3/uL (4.0-10.0)
[2020-08-04 16:43] LABS: BASO % 0.3 % (0.0-1.0); EOS # 0.2 10^3/uL (0.0-0.5); EOS % 3.7 % (0.0-3.0); HEMATOCRIT 39.9 % (42.0-52.0); HEMOGLOBIN 13.3 g/dl (13.5-17.5); LYMPH # 1.6 10^3/uL (1.5-5.0); LYMPH % 27.1 % (24.0-44.0); MEAN CORPUSCULAR HEMOGLOBIN 30.2 pg (27.0-33.0); MEAN CORPUSCULAR HGB CONC 33.3 g/dl (32.0-36.5); MEAN CORPUSCULAR VOLUME 90.7 fl (80.0-96.0); MONO # 0.7 10^3/uL (0.0-0.8); MONO % 12.9 % (0.0-5.0); NEUTROPHILS # 3.2 10^3/uL (1.5-8.5); NEUTROPHILS % 55.5 % (36.0-66.0); PLATELET COUNT, AUTOMATED 243 10^3/uL (150-450); WHITE BLOOD COUNT 5.7 10^3/uL (4.0-10.0)
--- NOTE | 2020-08-06 09:34 | REP ---
CT OF THE BRAIN WITHOUT CONTRAST: HISTORY: Stroke COMPARISON: CT study from 05/22/20. FINDINGS: Preliminary digital die operator radiograph is unremarkable. Bone window settings demonstrate an intact bony calvarium. The visualized paranasal sinuses are clear. No intraorbital abnormality is appreciated. There is loss of garcia-white differentiation pattern throughout the distribution of the left middle cerebral artery involving the left basal ganglia, anterior inferior temporal lobe on the left and left frontoparietal region. This is consistent with a recent infarct and is essentially unchanged from the 05/22/20 prior study. There is no evidence of intracranial hemorrhage. No extra-axial fluid collection or mass is seen. IMPRESSION: Large recent infarct left middle cerebral artery territory distribution, essentially unchanged from recent prior study. MTDD
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
[2020-08-18 21:08] LABS: ALT/SGPT 146 U/L (12-78); BILIRUBIN,DIRECT 0.2 MG/DL (0.0-0.2); BILIRUBIN,TOTAL 0.4 MG/DL (0.2-1.0); BLOOD UREA NITROGEN 12 MG/DL (7-18); CALCIUM LEVEL 9.6 MG/DL (8.5-10.1); CARBON DIOXIDE LEVEL 26 MEQ/L (21-32); CHLORIDE LEVEL 108 MEQ/L (98-107); CREATININE FOR GFR 1.16 MG/DL (0.70-1.30); GLOMERULAR FILTRATION RATE > 60.0 (>60); GLUCOSE, FASTING 127 MG/DL (70-100); POTASSIUM SERUM 4.1 MEQ/L (3.5-5.1); SODIUM LEVEL 141 MEQ/L (136-145); TOTAL PROTEIN 7.4 GM/DL (6.4-8.2)
[2020-08-18 21:09] LABS: ALBUMIN 4.1 GM/DL (3.2-5.2)
[2020-08-27 10:02] LABS: BLOOD UREA NITROGEN 10 MG/DL (7-18); CALCIUM LEVEL 9.2 MG/DL (8.5-10.1); CARBON DIOXIDE LEVEL 26 MEQ/L (21-32); CHLORIDE LEVEL 110 MEQ/L (98-107); GLOMERULAR FILTRATION RATE > 60.0 (>60); GLUCOSE, FASTING 134 MG/DL (70-100); POTASSIUM SERUM 4.1 MEQ/L (3.5-5.1); SODIUM LEVEL 143 MEQ/L (136-145)
[2020-08-28 16:20] LABS: ALBUMIN 4.3 GM/DL (3.2-5.2); ALT/SGPT 342 U/L (12-78); BILIRUBIN,TOTAL 0.5 MG/DL (0.2-1.0); BLOOD UREA NITROGEN 11 MG/DL (7-18); CALCIUM LEVEL 9.4 MG/DL (8.5-10.1); CARBON DIOXIDE LEVEL 27 MEQ/L (21-32); CHLORIDE LEVEL 108 MEQ/L (98-107); CREATININE FOR GFR 1.18 MG/DL (0.70-1.30); GLOMERULAR FILTRATION RATE > 60.0 (>60); GLUCOSE, FASTING 138 MG/DL (70-100); POTASSIUM SERUM 4.2 MEQ/L (3.5-5.1); SODIUM LEVEL 141 MEQ/L (136-145); TOTAL PROTEIN 7.4 GM/DL (6.4-8.2)
[2020-09-03 04:12] LABS: ALT/SGPT 163 U/L (12-78); BILIRUBIN,TOTAL 0.5 MG/DL (0.2-1.0); BLOOD UREA NITROGEN 13 MG/DL (7-18); CALCIUM LEVEL 8.9 MG/DL (8.5-10.1); CARBON DIOXIDE LEVEL 30 MEQ/L (21-32); CHLORIDE LEVEL 107 MEQ/L (98-107); CREATININE FOR GFR 1.12 MG/DL (0.70-1.30); GLOMERULAR FILTRATION RATE > 60.0 (>60); GLUCOSE, FASTING 143 MG/DL (70-100); POTASSIUM SERUM 3.9 MEQ/L (3.5-5.1); SODIUM LEVEL 141 MEQ/L (136-145); TOTAL PROTEIN 7.1 GM/DL (6.4-8.2)
[2020-09-04 19:52] LABS: BLOOD UREA NITROGEN 14 MG/DL (7-18); CARBON DIOXIDE LEVEL 28 mmol/L (20-29); CHLORIDE LEVEL 106 MEQ/L (98-107); CREATININE FOR GFR 1.13 MG/DL (0.70-1.30); GLOMERULAR FILTRATION RATE > 60.0 (>60); GLUCOSE, FASTING 125 MG/DL (70-100); POTASSIUM SERUM 3.8 MEQ/L (3.5-5.1); SODIUM LEVEL 139 MEQ/L (136-145)
[2020-09-08 11:12] LABS: BLOOD UREA NITROGEN 12 MG/DL (7-18); CALCIUM LEVEL 9.2 MG/DL (8.5-10.1); CARBON DIOXIDE LEVEL 29 MEQ/L (21-32); CHLORIDE LEVEL 108 MEQ/L (98-107); CREATININE FOR GFR 1.12 MG/DL (0.70-1.30); GLOMERULAR FILTRATION RATE > 60.0 (>60); GLUCOSE, FASTING 143 MG/DL (70-100); POTASSIUM SERUM 4.1 MEQ/L (3.5-5.1); SODIUM LEVEL 141 MEQ/L (136-145)
== END 2020-06-18 14:55 | disposition home health service (06) | DRG 58 ==
LOC: M PM&R 13:11
PROVIDERS: ADMIT Physical Medicine & Rehabilitation; ATTEND Physical Medicine & Rehabilitation
DX: I69.352 Hemiplegia and hemiparesis following cerebral infarction affecting left dominant side (principal); J45.909 Unspecified asthma, uncomplicated; I69.320 Aphasia following cerebral infarction; Z74.09 Other reduced mobility; R33.9 Retention of urine, unspecified; Z79.82 Long term (current) use of aspirin; Z79.899 Other long term (current) drug therapy; Z91.013 Allergy to seafood; G40.409 Other generalized epilepsy and epileptic syndromes, not intractable, without status epilepticus; I10 Essential (primary) hypertension